=== PATIENT | male | born 1990 | race Caucasian/White ===

== ENCOUNTER 2022-12-19 10:46 | Outpatient (AMB) | payer OTHER, SELFPAY ==
--- NOTE | 2022-12-19 13:17 | MHC.OFFWIV ---
Intake Vital Signs 12/19/22 13:19 Height 5 ft 9 in Weight 156 lb BMI 23.0 BP 140/80 H Blood Pressure Location Rt brachial Position Sitting Pulse 74 Pulse Source Pulse Oximeter Temp 99.5 F Temp Source Temporal Artery Scan Pulse Oximetry (%) 98 Oxygen Delivery Method Room Air Intake Visit Reasons: Est/headaches/light fever Intake Note: Patient here for headaches, slight fever for two days, he has had vomiting due to them. He would also like to talk about lower back pain. Patient Tobacco Use Status: Never used Tobacco Allergies No Known Allergies Allergy (Unverified 12/19/22 13:21) Do you need a note to return to daycare/school/sports/work: Yes HPI Est/headaches/light fever HPI Details 32-year-old male patient presents today with a 2 day history of body ache, backache, headache, temp up to 100, mildly sore throat, and some episodes of nausea/vomiting. Denies any known exposure to sick contacts. Denies any respiratory symptoms. [facility] Social History Patient Tobacco Use Status: Never used Tobacco Review of Systems Const All systems reviewed & are unremarkable except as noted in HPI and below Physical Exam Vital Signs: Last Vital Signs Temp 99.5 F 12/19/22 13:19 Pulse 74 12/19/22 13:19 BP 140/80 H 12/19/22 13:19 Pulse Ox 98 12/19/22 13:19 Oxygen Delivery Method Room Air 12/19/22 13:19 BMI result Body Mass Index 23.0 Const General: cooperative, no acute distress and ill appearing (mild) HEENT Head: Yes normal to inspection Ears: hearing grossly normal bilaterally, external ears normal and unable to visualize TM (Cerumen impaction) bilaterally General nose exam: Normal external nose present and Normal nasal mucous membranes and turbinates present Face and sinus: Yes normal facial exam Mouth: Normal oral and palatal mucosa present and moist mucous membranes Throat: Yes abnormal tonsil (Tonsillar hypertrophy and erythema) and Yes posterior oropharynx abnormal (Erythematous) Neck Neck: Yes no lymphadenopathy and Yes no meningeal signs Resp Effort & Inspection: normal respiratory effort and able to speak in complete sentences Auscultation: clear to auscultation bilaterally Cardio Jugular venous distension: no JVD Palpation: normal PMI Rate: regular rate Rhythm: regular rhythm Skin General skin exam: no rashes or lesions noted Neuro General: no meningeal signs Extrem General: Yes capillary refill normal and Yes no clubbing, cyanosis or edema Psych Appearance: grossly normal Mental Status: mental status grossly normal Speech and movement: Normal speech and movement present Results AMB Rapid Strep AMB Rapid Strep Negative Last Edit by KAELYN Samaniego on 12/19/22 13:57 Assessment & Plan Assessment & Plan (1) Upper respiratory virus: Code(s): J06.9 - Acute upper respiratory infection, unspecified Plan: Patient's symptoms consistent with viral illness. We reviewed conservative measures for symptomatic treatment, including Motrin, Tylenol, rest, hydration, otc cold/flu products. He declines any viral testing. He has bilateral cerumen impaction in both ears, which I encouraged he utilize Debrox drops for. If he does not improve with time and conservative measures, or if symptoms worsen, he can return to the clinic for further evaluation/testing as desired. Patient agrees to plan. Work note provided. Orders: Orders AMB Rapid Strep Screen Today Z13.9 - Encounter for screening, unspecified Coding Level of Care Code Est Pt Level 3 (73482) Diagnoses Upper respiratory virus J06.9
[2022-12-19 13:19] VITALS: BP 140/80; PULSE 74; TEMP 37.5; O2SAT 98; BMI 23.0
== END 2022-12-19 14:01 | disposition home or self-care (01) ==
PROVIDERS: PCP Hospitalist; Visit Provider Nurse Practitioner Family
DX: J06.9 Acute upper respiratory infection, unspecified (principal); J02.9 Acute pharyngitis, unspecified
CPT/HCPCS: 87880; 99213

== ENCOUNTER 2023-01-30 11:58 | Observation (INO) | payer OTHER, SELFPAY ==
--- NOTE | ~2023-01-30 | CT_ITS ---
EXAMINATION: CT ABDOMEN AND PELVIS WITH CONTRAST CLINICAL INFORMATION: Abdominal pain. COMPARISON: CT abdomen/pelvis 08/19/2016. TECHNIQUE: Multidetector volumetric images were obtained from the superior aspect of the liver through the pubic symphysis following administration 85 mL of Omnipaque 350 intravenous contrast. Sagittal and coronal reformatted images were obtained on the technologist's workstation. Oral contrast: No This CT examination was performed using dose optimization techniques as appropriate, variously including the following: *Automated exposure control *Adjustment of mA and/or kV according to patient size (this includes techniques or standardized protocols for targeted exams where dose is matched to indication/reason for exam; i.e. extremities or head) *Use of iterative reconstruction technique DLP: 384 mGy-cm FINDINGS: LUNG BASES: The visualized lung bases are unremarkable. LIVER, GALLBLADDER, AND BILIARY TREE: The liver is normal in size, shape, and attenuation. Mild periportal edema. No focal hepatic lesion or biliary ductal dilatation is present. The gallbladder is unremarkable with no evidence of radiopaque gallstones, gallbladder wall thickening, or obvious pericholecystic inflammatory changes. PANCREAS: Nonspecific trace amount of free fluid adjacent to the pancreatic tail extending to the left anterior pararenal space/paracolic gutter. SPLEEN: Unremarkable. ADRENAL GLANDS: Unremarkable. KIDNEYS AND URETERS: Symmetric nephrograms. No suspicious renal lesion. No nephrolithiasis. No hydronephrosis. As above, trace amount of free fluid in the left anterior pararenal space. BLADDER: Unremarkable. GASTROINTESTINAL TRACT: Fluid-filled, dilated appendix measuring up to 1 cm in diameter with a small amount of periappendiceal free fluid (6:20). Scattered fluid-filled distended loops of small bowel with wall thickening within a loop of small bowel in the left abdomen (3:33). Questionable small transient small bowel intussusception in the left abdomen, best visualized on sagittal image 30 series 7. No pneumoperitoneum. No organized extraluminal collection. No evidence of bowel obstruction. ABDOMINAL WALL: No significant hernia is appreciated. LYMPH NODES: Limited evaluation due to paucity of abdominal fat. No discrete abdominopelvic lymphadenopathy. VASCULAR: Normal caliber abdominal aorta. PELVIC VISCERA: Small volume of free fluid. OSSEOUS STRUCTURES: No acute or aggressive appearing osseous findings. CT/CT abdomen pelvis w IV con IMPRESSION: Scattered fluid distended loops of small bowel, some demonstrating wall thickening in the left abdomen, with trace amount of free fluid in the left upper quadrant and pelvis, and mild mesenteric congestion. Constellation of findings are suspicious for acute enteritis. The appendix is abnormally dilated and fluid-filled with a small amount of periappendiceal free fluid, recommend clinical correlation for acute appendicitis. Alternatively, although less favored, these may represent reactive changes in the setting of enteritis.
--- NOTE | ~2023-01-30 | CT_ITS ---
EXAMINATION: CT ABDOMEN AND PELVIS WITH CONTRAST CLINICAL INFORMATION: Intussusception COMPARISON: None available. TECHNIQUE: Multidetector volumetric images were obtained from the superior aspect of the liver through the pubic symphysis following administration 85 mL of Omnipaque 350 intravenous contrast. Sagittal and coronal reformatted images were obtained on the technologist's workstation. Oral contrast: No This CT examination was performed using dose optimization techniques as appropriate, variously including the following: *Automated exposure control *Adjustment of mA and/or kV according to patient size (this includes techniques or standardized protocols for targeted exams where dose is matched to indication/reason for exam; i.e. extremities or head) *Use of iterative reconstruction technique DLP: 292 mGy-cm FINDINGS: BUTTERMAKER CONTINUOUS CHURN: Nonobstructive bowel pattern. LUNG BASES: The visualized lung bases are unremarkable. Nonenlarged heart. No pericardial effusion. LIVER, GALLBLADDER, AND BILIARY TREE: The liver is normal in size, shape, and attenuation. No focal hepatic lesion or biliary ductal dilatation is present. Periportal edema is present. Hypodensity adjacent to falciform ligament likely focal fatty deposition. The gallbladder is dense, likely vicarious excretion. No gallbladder dilatation or evidence of radiopaque gallstones, gallbladder wall thickening, or obvious pericholecystic inflammatory changes. PANCREAS: Unremarkable. SPLEEN: Unremarkable. ADRENAL GLANDS: Unremarkable. KIDNEYS AND URETERS: The kidneys are normal in size, shape, and attenuation. No hydronephrosis, hydroureter, or calculi seen. No perinephric stranding. BLADDER: Unremarkable. GASTROINTESTINAL TRACT: Moderately distended stomach. In focally mildly dilated left upper quadrant proximal small bowel loop, intraluminal filling defect is questioned on axial 3:34, coronal 36/73, sagittal 23/109. Contrast flows freely through this region through small bowel into the colon. There is no proximal small bowel dilatation, regional inflammatory changes, fluid or pathognomonic target sign. Few other incompletely contrast-filled bowel loops are also seen in left upper quadrant. No CT evidence of bowel obstruction. Terminal ileum is unremarkable. On today's study, post oral contrast administration, 2.0 x 1.5 x 1.8 cm medial cecal thickening/soft tissue density is now identified at the base of the appendix, axial 3:58, coronal 21/73. The appendix itself remains fluid-filled measuring 10 mm with enhancing rosenberg. Periappendiceal stranding/fluid again seen on coronal 6:18. Visualized contrast-filled colon is unremarkable, there is underfilling of possibly mildly thickened sigmoid colon. ABDOMINAL WALL: No significant hernia is appreciated. LYMPH NODES: Normal. VASCULAR: Unremarkable. PELVIC VISCERA: Bilaterally symmetric prominent seminal vesicles. Phleboliths. OSSEOUS STRUCTURES: Unremarkable. CT/CT abdomen pelvis w IV con IMPRESSION: Persistent findings suspicious for acute appendicitis. Focused right lower quadrant ultrasound may be useful for further confirmation. Equivocal left upper quadrant small bowel findings with respect to possible intussusception. Unchanged nonspecific periportal edema. Fleischner guidelines were followed.
[2023-01-30 12:24] LABS: MANUAL DIFF FLAG NO
[2023-01-30 12:27] LABS: Basophils Absolute Auto 0.1 X10*3/uL (0.0-0.2); Basophils Percent Auto 0.3 % (0-2); Eosinophils Absolute Auto 0.1 X10*3/uL (0.0-0.4); Eosinophils Percent Auto 0.3 % (0-4); Hematocrit 43.1 % (42.0-52.0); Hemoglobin 14.7 g/dl (14.0-18.0); Imm Gran Abs Auto 0.11 X10*3/uL (0.00-0.03); Imm Gran Pct Auto 0.5 % (0.0-0.4); Lymphocytes Absolute Auto 1.2 X10*3/uL (1.2-4.9); Lymphocytes Percent Auto 5.3 % (20-40); Mean Corpuscular HGB Conc 34.1 g/dl (31.0-36.0); Mean Corpuscular Hemoglobin 30.1 pg (27.0-33.0); Mean Corpuscular Volume 88.3 fL (80.0-98.0); Mean Platelet Volume 9.6 fL (9.4-12.4); Monocytes Absolute Auto 1.3 X10*3/uL (0.1-1.2); Monocytes Percent Auto 5.6 % (2-11); Neutrophils Absolute Auto 19.5 x10*3/uL (2.0-8.3); Platelet Count 240 X10*3/uL (160-400); Red Blood Count 4.88 X10*6/uL (4.60-5.80); Red Cell Distribution Width 12.6 % (11.0-16.0); White Blood Count 22.2 X10*3/uL (4.8-10.8)
[2023-01-30 12:29] VITALS: BP 87/40; PULSE 65; RESP 18; TEMP 36.6; O2SAT 98; BMI 23.0
--- NOTE | 2023-01-30 12:43 | ED_ITS ---
HPI - Abdominal Pain General Chief Complaint: Abdominal Pain Stated Complaint: Stomach Pain Time Seen by Provider: 01/30/23 12:42 Source: patient and family Mode of arrival: ambulatory Limitations: no limitations History of Present Illness HPI narrative: 32 yo male with no past surgery or PMH but does have bouts of abdominal pain and near syncope/syncope this happened 4 years ago and then 1 month ago - 1 month ago this happened abdominal pain nausea and syncope he monitored symptoms at home and it resolved. He comes in woke up this AM felt lower abdominal pain and then had some nausea and due to pain syncopized x 3. He has no CP/SOB, no bloody stools and no dysuria. MD elicited complaint: abdominal pain Pertinent past history: none Onset (ago): day(s) (this AM) Pain Consistency: constant Location: suprapubic Severity: moderate Quality: cramping Radiation: none Migration to: no migration Exacerbating factors: movement Relieving factors: nothing Context: history of similar episodes Associated symptoms: nausea, vomiting and syncope Related Data Home Medications Medication Instructions Recorded Confirmed No Known Home Meds 12/19/22 12/19/22 Allergies Allergy/AdvReac Type Severity Reaction Status Date / Time No Known Allergies Allergy Unverified 12/19/22 13:21 Review of Systems Review of Systems Constitutional : No Weight loss, No Fever, No Chills ENT/Mouth : No sore throat, No Rhinorrhea Eyes: No Swelling, No Redness Cardiovascular : No Chest Pain, No SOB, NoEdema Respiratory : No Cough, No Sputum, No Wheezing Gastrointestinal : Positive Nausea, Positive Vomiting, no Diarrhea, positive abdominal Pain, No Hematochezia, No Melena Genitourinary : No Dysuria, No Urinary Frequency, No Hematuria, No Urgency Musculoskeletal : No joint pain, No Myalgias, No Joint Swelling Skin : No Skin Lesions, No rash Neuro : No Weakness, No Numbness, No Dizziness, No Headache Psych : No Anxiety/Panic, No Depression Heme/Lymph: No Bruising, No Lymphadenopathy All other systems reviewed and are negative. [facility] Past Medical History Attestation statement: The following information was validated with the patient. Medical History No pertinent past medical history Social History Social History Patient Tobacco Use Status: Never used Tobacco Smoked in Last 30 Days: No Use of substances other than those prescribed or required for medical reasons: Yes Substance Use Type: Marijuana Substance Use Frequency: Daily Advance Directives: No Physical Exam ED Vital Signs: Vital Signs - 24 hr 01/30/23 12:29 01/30/23 14:00 01/30/23 15:35 Temperature 97.8 F 98.3 F Pulse Rate 65 71 Respiratory Rate 18 16 Blood Pressure 87/40 L 120/60 111/61 Pulse Oximetry 98 100 Oxygen Delivery Method Room Air Room Air BMI result Body Mass Index 23.0 Appearance: Alert. Oriented X3. No acute distress. Eyes: Pupils equal, round and reactive to light. ENT: Pharynx normal. Neck: Normal inspection. Neck supple. CVS: Normal heart rate and rhythm. Pulses normal. Respiratory: No respiratory distress. Breath sounds normal. Abdomen: Soft and moderate ttp with no rebound Skin: Skin warm and dry. pale skin color. Normal skin turgor. Extremities: No lower extremity edema. No calf ttp Neuro: Oriented X 3. No motor deficit. No sensory deficit. Course Course Course Narrative: This is an RME: Additional HPI, ROS, PE not included below will be deferred to primary provider. 32-year-old male presents with severe abdominal pain throughout, fatigue, has had 3 syncopal episodes over the past few weeks, reporting he just does not feel well he feels very weak. Labs revealing leukocytosis with left shift. Chemistry pending. Patient looks pale, jaundice blood pressure 87/40, will bring him straight to the back for evaluation. Medical Decision Making Medical Decision Making [facility] Narrative: 32 yo male here with syncope and lower abdominal pain with n/v at this time hx of same in past could be appendicitis, viral, constipation, vasovagal - labs, 30cc/kg fluids, IV toradol for pain, EKG, CT scan for appendicitis, empiric antibiotics Differential Diagnosis Differential Diagnoses: The differential diagnosis associated with the presentation includes vasovagal, constipation, UTI, renal colic, appendicitis Admission/Observation Consideration of admission/observation: Escalation of care including admission/observation considered admit to surgery Consult Healthcare Provider Management of the patient was discussed with: Ticket Taker (Dr. Toshia tian) Lab Data [facility] Lab Attestation statement: I reviewed the patient's lab results. 01/30/23 12:20 01/30/23 12:20 Labs: Lab Results 01/30/23 01/30/23 Range/Units 12:20 12:51 WBC 22.2 H (4.8-10.8) X10*3/uL RBC 4.88 (4.60-5.80) X10*6/uL Hgb 14.7 (14.0-18.0) g/dl Hct 43.1 (42.0-52.0) % MCV 88.3 (80.0-98.0) fL MCH 30.1 (27.0-33.0) pg MCHC 34.1 (31.0-36.0) g/dl RDW 12.6 (11.0-16.0) % Plt Count 240 (160-400) X10*3/uL MPV 9.6 (9.4-12.4) fL Immature Gran % (Auto) 0.5 H (0.0-0.4) % Neut % (Auto) 88.0 H (45-73) % Lymph % (Auto) 5.3 L (20-40) % [place] % (Auto) 5.6 (2-11) % Eos % (Auto) 0.3 (0-4) % Baso % (Auto) 0.3 (0-2) % Lymph # (Auto) 1.2 (1.2-4.9) X10*3/uL [place] # (Auto) 1.3 H (0.1-1.2) X10*3/uL Eos # (Auto) 0.1 (0.0-0.4) X10*3/uL Baso # (Auto) 0.1 (0.0-0.2) X10*3/uL Abs Immat Gran (auto) 0.11 H (0.00-0.03) X10*3/uL Absolute Neuts (auto) 19.5 H (2.0-8.3) x10*3/uL Absolute Nucleated RBC 0.000 (0.0-0.012) X10*3/uL Nucleated RBC % (auto) 0.0 (0.0-0.2) /100WBC Sodium 138 (135-145) mmol/L Potassium 3.8 (3.3-5.1) mmol/L Chloride 105 (96-108) mmol/L Carbon Dioxide 27 (22-29) mmol/L Anion Gap 10 L (12-20) BUN 8 L (9-16) mg/dL Creatinine 0.79 (0.5-1.4) mg/dL Estim Creat Clear Calc 140.3 Estimated GFR > 60 Random Glucose 109 (60-115) mg/dL Lactic Acid 1.7 (0.5-2.0) mmol/L Calcium 9.3 (8.4-10.2) mg/dL Magnesium 1.8 (1.6-2.6) mg/dL Total Bilirubin 0.9 (0.0-1.0) mg/dL AST 45 H (5-37) U/L ALT 40 (0-40) U/L Alkaline Phosphatase 57 (39-117) U/L Total Protein 7.5 (6.5-8.0) g/dL Albumin 4.5 (3.5-5.0) g/dL Lipase 15 (8-78) U/L Independent Interpretation I performed an independent interpretation of an: EKG and CT Scan (enteritis, appendicitis) Interpretation: Rate: 75 Rhythm: NSR [place]: normal Normal P waves. Normal MARY ANNE. incomplete RBBB ST T wave : no CADY, normal qTC: normal prior studies: no acute ischemia The study has been interpreted contemporaneously by me. . Radiology Impression Discussion of test interpretation with radiology: I have reviewed the radiologist's reading. Independent Historian Clinical information obtained from an independent historian. History obtained from or confirmed by: Spouse External Record Review External record reviewed: Inpatient record Medications Administered Generic Name Dose Route Start Last Admin Trade Name Freq PRN Reason Stop Dose Admin Metronidazole 500 mg in 100 mls @ 100 mls/hr 01/30/23 16:13 01/30/23 16:21 Flagyl IV 01/30/23 17:12 100 mls/hr ONCE ONE Administration Discontinued Medications Generic Name Dose Route Start Last Admin Trade Name Freq PRN Reason Stop Dose Admin Diphenhydramine HCl 25 mg 01/30/23 13:12 01/30/23 13:27 Diphenhydramine Hcl 50 Mg/Ml Vial IVPUSH 01/30/23 13:13 25 mg ONCE ONE Administration Sodium Chloride 2,177.25 mls @ 2,177.25 mls/hr 01/30/23 12:38 01/30/23 15:25 Ns 30 ml/kg infuse over 1 hr (2177.25 ml) 01/30/23 13:37 Infused IV Infusion .Q1H STA Ceftriaxone Sodium 1 gm/ 50 mls @ 100 mls/hr 01/30/23 12:38 01/30/23 15:25 Sodium Chloride IV 01/30/23 13:07 Infused ONCE ONE Infusion Iohexol 85 ml 01/30/23 14:23 01/30/23 14:24 Iohexol 350 Mg/Ml 100 Ml Infus..Btl IV 01/30/23 14:24 85 ml ONCE ONE Administration Ketorolac Tromethamine 15 mg 01/30/23 12:52 01/30/23 13:05 Ketorolac Tromethamine 15 Mg/Ml Vial IVPUSH 01/30/23 12:53 15 mg ONCE ONE Administration Metoclopramide HCl 10 mg 01/30/23 13:12 01/30/23 13:27 Metoclopramide Hcl 10 Mg/2 Ml Vial IVPUSH 01/30/23 13:13 10 mg ONCE ONE Administration Morphine Sulfate 4 mg 01/30/23 16:15 01/30/23 16:21 Morphine Sulfate 4 Mg/Ml Cartridge IVPUSH 01/30/23 16:16 4 mg ONCE ONE Administration Protocol Ondansetron HCl 4 mg 01/30/23 12:52 01/30/23 13:03 Ondansetron Hcl 4 Mg/2 Ml Vial IVPUSH 01/30/23 12:53 4 mg ONCE ONE Administration Critical Care Time Critical Care Time Critical Care Time: Yes Total Critical Care Time: 45 Attestation: IV morphine for pain - improved pain, CT scan, consult to surgery, 30cc / kg bolus I attest to this time spent taking care of the patient Discharge Plan Discharge Clinical Impression: Abdominal pain Qualifiers: Abdominal location: lower abdomen, unspecified Qualified Code(s): R10.30 - Lower abdominal pain, unspecified Acute appendicitis Qualifiers: Acute appendicitis type: with localized peritonitis Appendicitis gangrene presence: without gangrene Appendicitis perforation presence: without perforation Appendicitis abscess presence: without abscess Qualified Code(s): K 35.30 - Acute appendicitis with localized peritonitis, without perforation or gangrene Elevated WBC count Qualifiers: Leukocytosis type: unspecified Qualified Code(s): D72.829 - Elevated white blood cell count, unspecified Patient Disposition: Admitted As Inpatient
[2023-01-30 12:46] LABS: Alanine Aminotransferase 40 U/L (0-40); Albumin Level 4.5 g/dL (3.5-5.0); Alkaline Phosphatase 57 U/L (39-117); Anion Gap 10 (12-20); Aspartate Amino Transferase 45 U/L (5-37); Bilirubin Total 0.9 mg/dL (0.0-1.0); Blood Urea Nitrogen 8 mg/dL (9-16); Calcium 9.3 mg/dL (8.4-10.2); Carbon Dioxide 27 mmol/L (22-29); Chloride 105 mmol/L (96-108); Creatinine Clr Calc Pharmacy 140.3; Estimated Glomerular Filt Rate > 60; Glucose Random 109 mg/dL (60-115); Lipase 15 U/L (8-78); Magnesium 1.8 mg/dL (1.6-2.6); Potassium 3.8 mmol/L (3.3-5.1); Sodium 138 mmol/L (135-145); Total Protein 7.5 g/dL (6.5-8.0)
[2023-01-30] MEDS: 0.9 % Sodium Chloride 2,177.25 ML 2177.25 ML IV (13:01)
[2023-01-30] MEDS: ondansetron HCL 4 MG/2 ML VIAL IVPUSH (13:03)
[2023-01-30] MEDS: Ketorolac Tromethamine 15 MG/ML VIAL IVPUSH (13:05)
[2023-01-30] MEDS: cefTRIAXone sodium 1 GM in 0.9 % Sodium Chloride 50 ML IV (13:08)
[2023-01-30 13:10] LABS: Lactic Acid 1.7 mmol/L (0.5-2.0)
[2023-01-30] MEDS: diphenhydrAMINE HCL 50 MG/ML VIAL 25 MG IVPUSH (13:27)
[2023-01-30] MEDS: Metoclopramide HCl 10 MG/2 ML VIAL IVPUSH (13:27)
[2023-01-30 14:00] VITALS: BP 120/60
[2023-01-30] MEDS: iohexoL 350 MG/ML 100 ML INFUS..BTL 85 ML IV (14:24)
[2023-01-30 15:35] VITALS: BP 111/61; PULSE 71; RESP 16; TEMP 36.8; O2SAT 100
--- NOTE | 2023-01-30 15:40 | PC.NURSE ---
Patient calm and cooperative on stretcher. Pain well controlled on medication administered per MAR. Vitals updated, no s/s of distress noted.
--- NOTE | 2023-01-30 16:14 | ECG_ITS ---
Test Reason : SYNCOPE Blood Pressure : / mmHG Vent. Rate : 075 BPM Atrial Rate : 075 BPM P-R Int : 144 ms QRS Dur : 096 ms QT Int : 382 ms P-R-T Axes : 080 092 052 degrees QTc Int : 426 ms Normal sinus rhythm Rightward axis Incomplete right bundle branch block Borderline ECG No previous ECGs available Referred By: Susi Pritchard Electronically Signed By:VON CAVAZOS MD
[2023-01-30] MEDS: metroNIDAZOLE/NS 500 MG/100 ML PIGGYBACK 100 MG IV (16:21)
[2023-01-30] MEDS: Morphine Sulfate 4 MG/ML CARTRIDGE IVPUSH (16:21)
--- NOTE | 2023-01-30 16:32 | PHA.MEDREC ---
Pharmacy Consult ? Medication Reconciliation Pharmacy has completed the medication reconciliation. Patient reports no medications at home. Khloe Gray, BillD
--- NOTE | 2023-01-30 17:02 | P.HPGS_ITS ---
History of Present Illness History of Present Illness Date of Service: 01/30/23 Chief complaint: Stomach Pain Narrative: Richard Ramirez is a 32 year old male presenting with complaints of mid abdominal pain located in a bandlike fashion across his abdomen at the umbilical level. The pain began this morning and has increased in severity throughout the day. He subsequently left work and presented to the emergency department for further evaluation. He reports a previous episode approximately 4 years ago as well as 1 month ago all with the similar presentation. He denies fever, chills but does feel nauseous. He also developed lightheadedness and apparently passed out with his previous episode 1 month ago. He denies changes in his bowel habits and denies any bloody stool. The previous episode 1 month ago lasted approximately 2 and half days but then subsequently resolved spontaneously. He never sought medical attention for the previous episodes. Upon presentation to the emergency department he was noted to have an elevated WBC 20,000. CT abdomen and pelvis revealed a fluid-filled appendix with some surrounding peritoneal fluid. There is also the question of a small bowel intussusception in the left mid abdomen. He is admitted to the surgical service for further management of the possible appendicitis or intussusception. Review of Systems Review of Systems: Yes all other systems are reviewed and are negative Gastrointestinal: Gastrointestinal: Reports abdominal pain, Denies diarrhea, Denies loose stools, Reports nausea and Denies vomiting PMFSH Past Medical History Medical History No pertinent past medical history Social History Social History Patient Tobacco Use Status: Never used Tobacco Smoked in Last 30 Days: No Use of substances other than those prescribed or required for medical reasons: Yes Substance Use Type: Marijuana Substance Use Frequency: Daily Advance Directives: No Meds Allergies Allergy/AdvReac Type Severity Reaction Status Date / Time No Known Allergies Allergy Unverified 12/19/22 13:21 Active Medications: Current Medications Metronidazole (Flagyl) 500 mg in 100 mls @ 100 mls/hr IV ONCE ONE Stop: 01/30/23 17:12 Last Admin: 01/30/23 16:21 Dose: 100 mls/hr Home Medications Medication Instructions Recorded Confirmed Last Taken Type No Known Home Meds 12/19/22 01/30/23 Unknown History Physical Exam Vital Signs: Vital Signs: Last Vital Signs Temp 98.3 F 01/30/23 15:35 Pulse 71 01/30/23 15:35 Resp 16 01/30/23 15:35 BP 111/61 01/30/23 15:35 Pulse Ox 100 01/30/23 15:35 O2 Del Method Room Air 01/30/23 15:35 BMI result Body Mass Index 23.0 Const: General: no acute distress and well developed Nutritional Appearance: well nourished Orientation/consciousness: patient oriented x3 Limitations: no limitations HEENT: Head: Yes normocephalic and Yes atraumatic Ears: hearing grossly normal bilaterally Resp: Effort & Inspection: normal respiratory effort, no audible wheezes, no cough and no respiratory distress GI: Other: Very mild tenderness in the periumbilical region. No tenderness in the right lower quadrant, negative Rovsing sign. Inspection: Yes normal to inspection Palpation (GI): Soft to palpation, Tenderness to palpation present (GI), no guarding, not rigid, No hepatosplenomegaly present, no hernias and no masses Percussion: Yes normal to percussion Auscultation: normal bowel sounds Skin: Other: Warm, dry, no rash Neuro: General: patient oriented x3 Extrem: General: Yes no clubbing, cyanosis or edema Results Results Labs: Short CBC 01/30/23 Range/Units 12:20 WBC 22.2 H (4.8-10.8) X10*3/uL Hgb 14.7 (14.0-18.0) g/dl Hct 43.1 (42.0-52.0) % Plt Count 240 (160-400) X10*3/uL BMP 01/30/23 12:20 Sodium 138 Potassium 3.8 Chloride 105 Carbon Dioxide 27 BUN 8 L Creatinine 0.79 Calcium 9.3 Liver Function 01/30/23 Range/Units 12:20 Total Bilirubin 0.9 (0.0-1.0) mg/dL AST 45 H (5-37) U/L ALT 40 (0-40) U/L Alkaline Phosphatase 57 (39-117) U/L Albumin 4.5 (3.5-5.0) g/dL Assessment and Plan (1) Acute appendicitis: Qualifiers: Acute appendicitis type: with localized peritonitis Appendicitis abscess presence: without abscess Appendicitis gangrene presence: without gangrene Appendicitis perforation presence: without perforation Qualified Code(s): K35.30 - Acute appendicitis with localized peritonitis, without perforation or gangrene Status: Acute (2) Small bowel intussusception: Status: Acute (3) Elevated WBC count: Qualifiers: Leukocytosis type: unspecified Qualified Code(s): D72.829 - Elevated wh ite blood cell count, unspecified Status: Acute Plan 32-year-old male patient presenting with acute onset of abdominal pain which has recurred several times in the past, most recently 1 month ago. Workup today does reveal an elevated WBC and CT is significant for a fluid-filled appendix and possible intussusception. The patient's symptoms are suggestive of intussusception occurring mainly in a bandlike fashion in the mid abdomen. On examination he has no tenderness in the right lower quadrant indicate acute appe ndicitis his abdomen is otherwise soft and nondistended. There is no evidence of obstruction clinically. I recommended admission for IV antibiotics. He will be kept on clear liquids tonight and be made NPO after midnight tonight. If his pain is persisting, a CT abdomen and pelvis with oral contrast will be requested to better evaluate the intussusception, if still present. I discussed the plan in detail with the patient and his mother. He expressed understanding and agrees with the plan. Quality Stroke Does the patient have a stroke diagnosis?: No VTE Prior VTE?: No VTE Risk Level:: Surgical - low VTE Device Contraindication: N/A - Device Ordered VTE Drug Contraindication: Treatment Not Indicated Procedures Date of Service Date of Service: 01/30/23
[2023-01-30 17:50] LABS: Appearance Urine Clear; Color Urine Yellow; Glucose Urine UA Negative (Negative); Leukocyte Esterase Urine Negative (Negative); Nitrite Urine Negative (Negative); PH 8.5 (5.0-9.0); Specific Gravity - Urine 1.025 (1.005-1.025); Urine Blood Negative (Negative); Urine Ketones 15 mg/dL (Negative); Urine Protein Negative (Neg-Trace)
[2023-01-30] MEDS: Dextrose 5 % and Lactated Ring 1,000 ML 125 ML IVCONT (18:29)
[2023-01-30] MEDS: Piperacillin Sodium/Tazobactam 3.375 GM in 0.9 % Sodium Chloride 50 ML IV (18:29)
[2023-01-30] MEDS: Acetaminophen 1,000 MG/100 ML PIGGYBACK 400 MG IV ×2 (18:33→23:56)
[2023-01-30 20:14] VITALS: BP 125/66; PULSE 94; RESP 15; O2SAT 98
--- NOTE | 2023-01-30 21:55 | PC.NURSE ---
report given to imc rn.
[2023-01-30 22:20] VITALS: BMI 23.5
[2023-01-30 22:46] VITALS: BP 113/60; PULSE 70; RESP 24; TEMP 36.7; O2SAT 99
[2023-01-30 23:47] VITALS: BP 112/61; PULSE 97; RESP 18; TEMP 37.1; O2SAT 98
[2023-01-31] MEDS: Piperacillin Sodium/Tazobactam 3.375 GM in 0.9 % Sodium Chloride 50 ML IV ×5 (00:35→23:44)
[2023-01-31] MEDS: Dextrose 5 % and Lactated Ring 1,000 ML 125 ML IVCONT ×3 (01:14→19:47)
[2023-01-31 03:33] VITALS: BP 108/61; PULSE 78; RESP 18; TEMP 37.1; O2SAT 98
[2023-01-31] MEDS: Acetaminophen 1,000 MG/100 ML PIGGYBACK 400 MG IV (05:33)
[2023-01-31 07:10] LABS: MANUAL DIFF FLAG NO
[2023-01-31 07:19] LABS: Basophils Percent Auto 0.2 % (0-2); Eosinophils Absolute Auto 0.1 X10*3/uL (0.0-0.4); Eosinophils Percent Auto 0.7 % (0-4); Hematocrit 38.2 % (42.0-52.0); Hemoglobin 12.8 g/dl (14.0-18.0); Imm Gran Abs Auto 0.04 X10*3/uL (0.00-0.03); Imm Gran Pct Auto 0.3 % (0.0-0.4); Lymphocytes Absolute Auto 1.2 X10*3/uL (1.2-4.9); Lymphocytes Percent Auto 9.4 % (20-40); Mean Corpuscular HGB Conc 33.5 g/dl (31.0-36.0); Mean Corpuscular Hemoglobin 29.9 pg (27.0-33.0); Mean Corpuscular Volume 89.3 fL (80.0-98.0); Mean Platelet Volume 10.3 fL (9.4-12.4); Monocytes Absolute Auto 0.8 X10*3/uL (0.1-1.2); Monocytes Percent Auto 6.1 % (2-11); Neutrophils Absolute Auto 10.9 x10*3/uL (2.0-8.3); Neutrophils Percent Auto 83.3 % (45-73); Platelet Count 196 X10*3/uL (160-400); Red Blood Count 4.28 X10*6/uL (4.60-5.80); Red Cell Distribution Width 12.9 % (11.0-16.0)
[2023-01-31 07:38] VITALS: BP 121/68; PULSE 74; RESP 18; TEMP 36.8; O2SAT 99
--- NOTE | 2023-01-31 08:50 | PM.PNGS ---
Subjective Subjective Date of Service: 01/31/23 Interval history: Pain is much improved today. Denies nausea, vomiting, diarrhea or constipation. Physical Exam Vital Signs: Vital Signs: Last Vital Signs Temp 98.3 F 01/31/23 07:38 Pulse 74 01/31/23 07:38 Resp 18 01/31/23 07:38 BP 121/68 01/31/23 07:38 Pulse Ox 99 01/31/23 07:38 O2 Del Method Room Air 01/31/23 07:38 BMI result Body Mass Index 23.5 Const: General: comfortable Nutritional Appearance: well nourished Orientation/consciousness: patient oriented x3 Limitations: no limitations Resp: Effort & Inspection: normal respiratory effort GI: Palpation (GI): Soft to palpation, nontender, no guarding, not rigid and no masses Percussion: Yes normal to percussion Auscultation: normal bowel sounds Rectal Exam - Male: Yes deferred Neuro: General: patient oriented x3 Extrem: General: Yes normal to inspection Objective Data Active Medications Hydromorphone HCl (Hydromorphone Hcl 0.5 Mg/0.5 Ml Syringe) 0.5 mg IVPUSH Q3H PRN; Protocol PRN Reason: Pain, Severe (Pain Scale 7-10) Acetaminophen (Ofirmev) 1,000 mg in 100 mls @ 400 mls/hr IV Q6H [facility] Last Infusion: 01/31/23 06:16 Dose: Infused Documented By: LYLE Dextrose/Lactated Ringer's (D5lr) 1,000 mls @ 125 mls/hr IVCONT .Q8H [facility] Last Admin: 01/31/23 01:14 Dose: 125 mls/hr Documented By: LYLE Piperacillin Sod/Tazobactam (Sod 3.375 gm/ Sodium Chloride) 50 mls @ 100 mls/hr IV Q6H [facility] Last Infusion: 01/31/23 07:07 Dose: Infused Documented By: MALAIKA Ondansetron HCl (Ondansetron Hcl 4 Mg/2 Ml Vial) 4 mg IVPUSH QID PRN PRN Reason: Nausea Sodium Chloride (0.9 % Sodium Chloride Flush 3 Ml Syringe) 3 ml IVFLUSH QSHIFT [facility] Last Admin: 01/31/23 00:10 Dose: Not Given Documented By: LYLE Non-Admin Reason: IV Running Zolpidem Tartrate (Zolpidem Tartrate 5 Mg Tablet) 5 mg PO BEDTIME PRN PRN Reason: Insomnia Labs 01/31/23 06:48 01/30/23 12:20 Labs: Laboratory Results - last 24 hr 01/30/23 01/30/23 01/30/23 12:20 12:51 17:40 MCV 88.3 MCH 30.1 MCHC 34.1 RDW 12.6 Plt Count 240 MPV 9.6 Immature Gran % (Auto) 0.5 H Neut % (Auto) 88.0 H Lymph % (Auto) 5.3 L [place] % (Auto) 5.6 Eos % (Auto) 0.3 Baso % (Auto) 0.3 Lymph # (Auto) 1.2 [place] # (Auto) 1.3 H Eos # (Auto) 0.1 Baso # (Auto) 0.1 Abs Immat Gran (auto) 0.11 H Absolute Neuts (auto) 19.5 H Absolute Nucleated RBC 0.000 Nucleated RBC % (auto) 0.0 Anion Gap 10 L Estim Creat Clear Calc 140.3 Estimated GFR > 60 Random Glucose 109 Lactic Acid 1.7 Calcium 9.3 Magnesium 1.8 Total Bilirubin 0.9 AST 45 H ALT 40 Alkaline Phosphatase 57 Total Protein 7.5 Albumin 4.5 Lipase 15 Urine Color Yellow Urine Appearance Clear Urine pH 8.5 Ur Specific [place] 1.025 Urine Protein Negative Urine Glucose (UA) Negative Urine Ketones 15 Urine Blood Negative Urine Nitrite Negative Ur Leukocyte Esterase Negative 01/31/23 06:48 MCV 89.3 MCH 29.9 MCHC 33.5 RDW 12.9 Plt Count 196 MPV 10.3 Immature Gran % (Auto) 0.3 Neut % (Auto) 83.3 H Lymph % (Auto) 9.4 L [place] % (Auto) 6.1 Eos % (Auto) 0.7 Baso % (Auto) 0.2 Lymph # (Auto) 1.2 [place] # (Auto) 0.8 Eos # (Auto) 0.1 Baso # (Auto) 0.0 Abs Immat Gran (auto) 0.04 H Absolute Neuts (auto) 10.9 H Absolute Nucleated RBC 0.000 Nucleated RBC % (auto) 0.0 Anion Gap Estim Creat Clear Calc Estimated GFR Random Glucose Lactic Acid Calcium Magnesium Total Bilirubin AST ALT Alkaline Phosphatase Total Protein Albumin Lipase Urine Color Urine Appearance Urine pH Ur Specific [place] Urine Protein Urine Glucose (UA) Urine Ketones Urine Blood Urine Nitrite Ur Leukocyte Esterase Procedures Date of Service Date of Service: 01/31/23 Progress Note: A&P Assessment and plan (1) Small bowel intussusception: Status: Acute (2) Acute appendicitis: Status: Acute Plan 32-year-old male patient with fluid-filled appendix and evidence of intussusception. Patient's symptoms are suggestive of intussusception which is improved today. No right lower quadrant tenderness elicited. WBC is improving as well. Plan: Contrasted CT with oral contrast to better evaluate intussusception. If normal CT, will start p.o.. Time Spent With Patient Time: Total time managing care of this patient today ____ minutes. No Severe Sepsis: No Severe Sepsis Quality Stroke Does the patient have a stroke diagnosis?: No VTE Prior VTE?: No VTE Risk Level:: Surgical - low VTE Device Contraindication: N/A - Device Ordered VTE Drug Contraindication: Treatment Not Indicated
--- NOTE | 2023-01-31 08:53 | MHC.CM.PN ---
CM met with Patient at bedside and addressed HINKLE with him, providing Patient with the original and placing a copy on the chart. Patient lives in a house with his and 2 year old Daughter and he is functionally independent and working. Home/self care is the goal and CM has initiated and will follow for dc planning. PCP is from [facility].
[2023-01-31 11:17] VITALS: BP 121/69; PULSE 63; RESP 18; TEMP 36.9; O2SAT 99
[2023-01-31] MEDS: iohexoL 350 MG/ML 75 ML INFUS..BTL 85 ML IV (14:17)
[2023-01-31 15:19] VITALS: BP 120/72; PULSE 63; RESP 16; TEMP 37.1; O2SAT 100
[2023-01-31 19:23] VITALS: BP 139/71; PULSE 58; RESP 16; TEMP 36.9; O2SAT 99
[2023-01-31] MEDS: Melatonin 3 MG TABLET 6 MG PO (20:20)
[2023-01-31 23:58] VITALS: BP 110/60; PULSE 69; RESP 18; TEMP 36.7; O2SAT 98
[2023-02-01 04:00] VITALS: BP 129/73; PULSE 58; RESP 20; TEMP 37.1; O2SAT 98
[2023-02-01] MEDS: Dextrose 5 % and Lactated Ring 1,000 ML 125 ML IVCONT (04:29)
[2023-02-01] MEDS: Piperacillin Sodium/Tazobactam 3.375 GM in 0.9 % Sodium Chloride 50 ML IV (05:21)
[2023-02-01 07:37] VITALS: BP 118/68; PULSE 69; RESP 18; TEMP 37.1; O2SAT 98
[2023-02-01] MEDS: 0.9 % Sodium Chloride Flush 3 ML SYRINGE IVFLUSH (08:53)
[2023-02-01 11:58] VITALS: BP 122/81; PULSE 71; RESP 18; TEMP 37; O2SAT 99
--- NOTE | 2023-02-01 12:40 | PM.PNGS ---
Subjective Subjective Date of Service: 02/01/23 Interval history: Patient has complete resolution of GI symptoms. His was also present. He has had a prior episode of this pain approximately 3 weeks ago. His follow-up CT scan from yesterday demonstrated no evidence of intussusception. Appendix was mildly edematous. Patient is tolerating his liquid diet. He wishes to go home. Physical Exam Vital Signs: Vital Signs: Last Vital Signs Temp 98.6 F 02/01/23 11:58 Pulse 71 02/01/23 11:58 Resp 18 02/01/23 11:58 BP 122/81 02/01/23 11:58 Pulse Ox 99 02/01/23 11:58 O2 Del Method Room Air 02/01/23 11:58 BMI result Body Mass Index 23.5 GI: Other: Abdomen soft, benign, nontender. Objective Data Active Medications Hydromorphone HCl (Hydromorphone Hcl 0.5 Mg/0.5 Ml Syringe) 0.5 mg IVPUSH Q3H PRN; Protocol PRN Reason: Pain, Severe (Pain Scale 7-10) Dextrose/Lactated Ringer's (D5lr) 1,000 mls @ 125 mls/hr IVCONT .Q8H [facility] Last Admin: 02/01/23 04:29 Dose: 125 mls/hr Documented By: DENIA Piperacillin Sod/Tazobactam (Sod 3.375 gm/ Sodium Chloride) 50 mls @ 100 mls/hr IV Q6H [facility] Last Infusion: 02/01/23 08:51 Dose: Infused Documented By: MELISSA Ondansetron HCl (Ondansetron Hcl 4 Mg/2 Ml Vial) 4 mg IVPUSH QID PRN PRN Reason: Nausea Sodium Chloride (0.9 % Sodium Chloride Flush 3 Ml Syringe) 3 ml IVFLUSH QSHIFT [facility] Last Admin: 02/01/23 08:53 Dose: 3 ml Documented By: MELISSA Zolpidem Tartrate (Zolpidem Tartrate 5 Mg Tablet) 5 mg PO BEDTIME PRN PRN Reason: Insomnia Labs 01/31/23 06:48 01/30/23 12:20 Microbiology Microbiology Results: Microbiology 01/30/23 12:59 Blood Culture - Preliminary Blood - Venous No growth after 24 hours. 01/30/23 12:51 Blood Culture - Preliminary Blood - Venous No growth after 24 hours. Procedures Date of Service Date of Service: 02/01/23 Progress Note: A&P Assessment and plan (1) Abdominal pain: Status: Acute Plan Current plan is discharge patient home with follow-up with Dr. Pope in 1 weeks time. Discharge instructions given. Time Spent With Patient Time: Total time managing care of this patient today ____ minutes. Quality Stroke Does the patient have a stroke diagnosis?: No VTE Prior VTE?: No VTE Risk Level:: Surgical - low VTE Device Contraindication: N/A - Device Ordered VTE Drug Contraindication: Treatment Not Indicated
--- NOTE | 2023-02-01 14:56 | MHC.CM.PN ---
ARIN 01/31 Patient discharged to home today self care. Patient will arrage for a family member to provide transportation home.
--- NOTE | 2023-02-04 08:24 | P.DS_ITS ---
DS: Providers Provider Date of Service: 02/01/23 Date of admission: 01/30/23 17:01 Date of discharge: 02/01/23 Primary care physician: Nereida Physician Attending physician on admission: Bryce Pope Attending physician on discharge: Janak Rivera DS: Diagnosis Discharge Diagnosis (1) Abdominal pain: Status: Acute DS: Summary Hospital Course Hospital Course: HPI AT ADMISSION: Richard Ramirez is a 32 year old male presenting with complaints of mid abdominal pain located in a bandlike fashion across his abdomen at the umbilical level. The pain began this morning and has increased in severity throughout the day. He subsequently left work and presented to the emergency department for further evaluation. He reports a previous episode approximately 4 years ago as well as 1 month ago all with the similar presentation. He denies fever, chills but does feel nauseous. He also developed lightheadedness and apparently passed out with his previous episode 1 month ago. He denies changes in his bowel habits and denies any bloody stool. The previous episode 1 month ago lasted approximately 2 and half days but then subsequently resolved spontaneously. He never sought medical attention for the previous episodes. Upon presentation to the emergency department he was noted to have an elevated WBC 20,000. CT abdomen and pelvis revealed a fluid-filled appendix with some surrounding peritoneal fluid. There is also the question of a small bowel intussusception in the left mid abdomen. HOSPITAL COURSE: He is admitted to the surgical service for further management of the possible appendicitis or intussusception. His abdomen is benign with no evidence of obstruction clinically. He was started on empiric IV antibiotics. His symptoms improved and resolved. A CT abdomen and pelvis with oral contrast was requested to better evaluate which showed no findings of intussusception but an edematous appendix. His WBC count was significant improved and his abdomen was benign and completely nontender. His diet was slowly advanced as tolerated. On the day of discharge, he had no abdominal pain or obstructive symptoms. He was tolerating a solid diet and had a benign abdominal exam. He felt ready for discharge. He was discharged to home on 02/01/23 in stable condition. He is to follow up in the office in 1 week. Status at Discharge Functional status at discharge: independent ambulation Overall status at discharge: patient is back to baseline Time Attestation Discharge coordination time: Less than 30 minutes Quality: Safe Use of Opioids Does Pt have an Active Cancer Diagnosis on the Problem List?: No Quality: Stroke Does the patient have a stroke diagnosis?: No Physical Exam Vital Signs: Vital Signs: Last Vital Signs Temp 98.6 F 02/01/23 11:58 Pulse 71 02/01/23 11:58 Resp 18 02/01/23 11:58 BP 122/81 02/01/23 11:58 Pulse Ox 99 02/01/23 11:58 O2 Del Method Room Air 02/01/23 11:58 BMI result Body Mass Index 23.5 Const: General: comfortable, no acute distress and alert Orientatio n/consciousness: patient oriented x3 GI: Inspection: No distended Palpation (GI): Soft to palpation and non tender Neuro: General: patient oriented x3 DS: Data Data Completed and Pending Labs on day of discharge: Preliminary micro results at discharge 01/30/23 12:51 Blood Culture - Preliminary Blood - Venous Prelim: GNR Gram Stain only 01/30/23 12:59 Blood Culture - Preliminary Blood - Venous No growth after 48 hours. Discharge Plan Discharge Patient Disposition: Home, Self-Care Referrals: Bryec Pope MD [Physician] - 1 Week PhysicianNereida [Primary Care Provider] - 1 Week Discharge Medications: No Action No Known Home Meds Discharge Orders: Discharge Order (Routine); Ordered 02/01/23 Ordered By: Janak Rivera Diet: Advance to usual diet Activity on Discharge: As tolerated Stand Alone Forms: Patient Portal Discharge page Care Plan Goals: Return to baseline Health Concerns: None Plan of Treatment: Conservative therapy Assessment: Stable Discharge Date/Time: 02/01/23 14:00
== END 2023-02-01 14:00 | disposition home or self-care (01) ==
LOC: HO.ED 16:17 → HO.EDOVER 17:25 → HO.IMC 21:34
PROVIDERS: Physician Assistant; Admitting Provider Surgery; Emergency Provider Emergency Medicine; Visit Provider Surgery
DX: R10.33 Periumbilical pain (principal); D72.829 Elevated white blood cell count, unspecified; K38.9 Disease of appendix, unspecified; R10.84 Generalized abdominal pain; R93.3 Abnormal findings on diagnostic imaging of other parts of digestive tract; R55 Syncope and collapse
CPT/HCPCS: 36415; 74177; 80053; 81003; 83605; 83690; 83735; 85025; 87040; 87185; 87205; 93005; 96361; 96365; 96366; 96367; 96375; 99222; 99285; J0131; J0696; J1200; J1836; J1885; J2270; J2405; J2543; J2765; Q9967

== ENCOUNTER → 2023-01-30 12:55 | Outpatient (BNV) | payer OTHER, SELFPAY | PROVIDERS: Emergency Provider Emergency Medicine; Visit Provider Surgery | DX: K35.30 Acute appendicitis with localized peritonitis, without perforation or gangrene (principal); K56.1 Intussusception; D72.829 Elevated white blood cell count, unspecified | CPT/HCPCS: 99024; 99222; 99232; 99238 ==

== ENCOUNTER 2024-09-01 04:38 | Inpatient (IN) | payer OTHER, SELFPAY ==
--- NOTE | ~2024-09-01 | CT_ITS ---
EXAMINATION: CTA NECK WITH CONTRAST (STROKE) CTA BRAIN WITH CONTRAST (STROKE) CLINICAL INFORMATION: Severe headache. COMPARISON: None available. TECHNIQUE: CTA of the head and neck was performed in the axial plane from the mediastinum to the skull vertex using 70 mL Omnipaque 350 intravenous contrast. Additional reformatted multiplanar images including maximum intensity projection MIP images are generated on the CT workstation. This CT examination was performed using dose optimization techniques as appropriate, variously including the following: *Automated exposure control *Adjustment of mA and/or kV according to patient size (this includes techniques or standardized protocols for targeted exams where dose is matched to indication/reason for exam; i.e. extremities or head) *Use of iterative reconstruction technique DLP: 1586 mGy centimeter. FINDINGS: The degree of stenosis determined by criteria similar to NASCET. Brain: No acute intracranial hemorrhage, mass effect, midline shift, hydrocephalus or herniation. Gaffney-white matter differentiation is normal. Posterior cranial fossa contents demonstrated no acute hemorrhage or mass effect. Sellar/suprasellar region demonstrated no gross masses. Craniocervical junction demonstrates normal position of the cerebellar tonsils. No air-fluid levels in the paranasal sinuses. Tympanic cavities and mastoid air cells are aerated. Chest CTA: No aneurysm or dissection or IV contrast extravasation, thoracic aortic arch. Neck CTA: Right CCA is normal. Right ICA is normal. Left ACAs normal. Left ICA/normal. V1/V2 segments are normal. Codominant vertebral arteries. Brain CTA: Anterior cerebral circulation: ICAs: Normal patency. No focal stenosis. No abrupt cut off. MCA's: Normal patency. No focal stenosis. No abrupt cut off. ACAs: Normal patency. No focal stenosis. No abrupt cut off. Anterior communicant artery is patent. Left posterior communicating artery is small and patent. Ophthalmic arteries are patent. There is a questionable 1 mm prominent origin of the right ophthalmic artery. Posterior cerebral circulation: V3/V4 segments: Normal patency. No focal stenosis. No intimal flap. There is a common trunk for the right anterior inferior and posterior inferior cerebral arteries. Left posterior inferior cerebral artery is normal. Basilar artery is normal. Superior cerebellar arteries are normal. 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 Normal patency. No abrupt cut off. Ancillary findings: No acute fracture or listhesis in the axial skeleton. Tympanic cavities and mastoid cells are aerated. No gross cervical lymphadenopathy. There is a 1.5 cm low density dominant nodule, right thyroid lobe. CT/CT angio head neck IMPRESSION: No acute intracranial hemorrhage or acute brain abnormality by CT. No dissection. No high degree stenosis. No main cerebral artery occlusion or embolus. 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 Electronically signed by: Teddy Landaverde MD 09/01/2024 10:11 AM EDT
--- NOTE | 2024-09-01 07:30 | ED.HA ---
HPI - Headache General Chief Complaint: Headache Stated Complaint: HEADACHES Time Seen by Provider: 09/01/24 07:22 Source: patient Mode of arrival: ambulatory Limitations: no limitations History of Present Illness HPI Narrative: This is a 34 years old the patient presented to the emergency department with a chief complaint of headache which started yesterday about 11:00 was a gradual onset headache no sudden. He is also complaining of body aches the headache is localized in both temples. He has no neck pain no neck stiffness he has no fever. He has nausea and vomiting as well. He gets occasionally headache MD elicited complaint: headache Onset (ago): day(s) (1) Onset description: gradually Location: other (Both temporal area) Severity: moderate Quality & Timing: aching Exacerbating factors: none Relieving factors: nothing Context: occurred at rest Associated symptoms: nausea and vomiting Related Data Home Medications ?Medication ?Instructions ?Recorded ?Confirmed No Known Home Meds 12/19/22 01/30/23 Allergies Allergy/AdvReac Type Severity Reaction Status Date / Time No Known Allergies Allergy Unverified 12/19/22 13:21 Review of Systems Review of Systems: Yes all other systems are reviewed and are negative Constitutional: Constitutional: Denies fever(s) Gastrointestinal: Gastrointestinal: Reports nausea and Reports vomiting PMFSH Past Medical History Attestation statement: The following information was validated with the patient. Medical History Small bowel intussusception Elevated WBC count Acute appendicitis Abdominal pain No pertinent past medical history Social History Social History Unable to assess alcohol history related to: Unknown Patient Tobacco Use Status: Never used Tobacco Smoked in Last 30 Days: No Use of substances other than those prescribed or required for medical reasons: Unknown Substance Use Type: Marijuana Advance Directives: No Advance Directives Information Provided: Yes service: No Physical Exam Vital Signs: Vital Signs: Last Vital Signs Temp 97.6 F 09/01/24 08:26 Pulse 88 09/01/24 13:02 Resp 16 09/01/24 13:02 BP 103/43 L 09/01/24 13:02 Pulse Ox 97 09/01/24 13:02 O2 Del Method Room Air 09/01/24 13:02 Patient looks not toxic Const: General: cooperative, comfortable, no acute distress, well developed, alert and awake Nutritional Appearance: average body habitus Orientation/consciousness: patient oriented x3 HEENT: Head: Yes normal to inspection Ears: hearing grossly normal bilaterally General nose exam: Normal external nose present Face and sinus: Yes normal facial exam Throat: Yes posterior oropharynx normal Neck: Neck: Yes normal visual inspection Chest: Chest palpation & inspection: normal inspection of the chest Resp: Effort & Inspection: normal respiratory effort Auscultation: clear to auscultation bilaterally Cardio: Jugular venous distension: no JVD Rate: regular rate Rhythm: regular rhythm GI: Inspection: Yes normal to inspection Palpation (GI): Soft to palpation, not firm and nontender Auscultation: normal bowel sounds Skin: General skin exam: no rashes or lesions noted, elasticity normal and turgor normal Lesions: no lesions Wounds: no wounds Neuro: General: patient oriented x3, gait normal and CN's II-XI intact bilaterally Cranial nerves: Yes CN's II-XII intact bilaterally Course Reevaluation(s) Reevaluation #1: Still complaining of a headache at this time, CT reviewed question 1 mm aneurysm right ophthalmic artery most likely incidental finding size very small. I discussed with the patient risk and benefits of lumbar puncture, patient consent for lumbar puncture Time: 11:09 Reevaluation #2: LP resulted pt has 395 WBC, elevated protein discussed with neurologist we will start him on IV antibiotic I tiger tests also ID we will admit Time: 13:56 Medications Administered Discontinued Medications Generic Name Dose Route Start Last Admin Trade Name Babs PRN Reason Stop Dose Admin Acetaminophen 650 mg 09/01/24 07:21 09/01/24 08:13 Acetaminophen 325 Mg Tablet PO 09/01/24 07:22 650 mg ONCE ONE Administration Diphenhydramine HCl 25 mg 09/01/24 07:27 09/01/24 07:43 Diphenhydramine Hcl 50 Mg/Ml Vial IVPUSH 09/01/24 07:28 25 mg ONCE ONE Administration Hydromorphone HCl 0.5 mg 09/01/24 08:24 09/01/24 08:58 Hydromorphone Hcl 0.5 Mg/0.5 Ml Syringe IVPUSH 09/01/24 08:25 0.5 mg ONCE ONE Administration Protocol Lactated Ringer's 1,000 mls @ 999 mls/hr 09/01/24 07:30 09/01/24 09:01 Lr IV 09/01/24 08:30 Infused .Q1H1M JYOTHI Infusion Sodium Chloride 1,000 mls @ 999 mls/hr 09/01/24 11:00 09/01/24 12:21 Ns IVCONT 09/01/24 12:00 Infused .Q1H1M JYOTHI Infusion Ibuprofen 600 mg 09/01/24 07:21 09/01/24 08:13 Ibuprofen 600 Mg Tablet PO 09/01/24 07:22 600 mg ONCE ONE Administration Iohexol 100 ml 09/01/24 09:53 09/01/24 09:54 Iohexol 350 Mg/Ml 100 Ml Infus..Btl IV 09/01/24 09:54 70 ml ONCE ONE Administration Ketorolac Tromethamine 15 mg 09/01/24 11:33 09/01/24 11:56 Ketorolac Tromethamine 15 Mg/Ml Vial IVPUSH 09/01/24 11:34 15 mg ONCE ONE Administration Metoclopramide HCl 10 mg 09/01/24 07:27 09/01/24 07:43 Metoclopramide Hcl 10 Mg/2 Ml Vial IVPUSH 09/01/24 07:28 10 mg ONCE ONE Administration Midazolam HCl 1 mg 09/01/24 11:33 09/01/24 11:55 Midazolam Hcl 2 Mg/2 Ml Vial IVPUSH 09/01/24 11:34 1 mg ONCE ONE Administration Medical Decision Making Medical Decision Making [facility] Narrative: Patient presented to the emergency room with a headache no worse headache ever we will insert an IV administer IV fluid antiemetic obtain imaging Differential Diagnosis Differential Diagnoses: The differential diagnosis associated with the presentation includes Migraine headache/viral syndrome/unlikely subarachnoid no sudden/unlikely meningitis no neck pain Admission/Observation Consideration of admission/observation: Escalation of care including admission/observation considered Consult Healthcare Provider Management of the patient was discussed with: Hospitalist Lab Data [facility] Lab Attestation statement: I reviewed the patient's lab results. 09/01/24 07:42 09/01/24 07:42 Labs: Lab Results 09/01/24 09/01/24 09/01/24 Range/Units 07:42 11:43 11:43 WBC 12.0 H (4.8-10.8) X10*3/uL RBC 4.86 (4.60-5.80) X10*6/uL Hgb 14.8 (14.0-18.0) g/dl Hct 40.9 L (42.0-52.0) % MCV 84.2 (80.0-98.0) fL MCH 30.5 (27.0-33.0) pg MCHC 36.2 H (31.0-36.0) g/dl RDW 12.3 (11.0-16.0) % Plt Count 190 (160-400) X10*3/uL MPV 9.6 (9.4-12.4) fL Immature Gran % (Auto) 0.2 (0.0-0.4) % Neut % (Auto) 93.0 H (45-73) % Lymph % (Auto) 2.6 L (20-40) % [place] % (Auto) 4.1 (2-11) % Eos % (Auto) 0.0 (0-4) % Baso % (Auto) 0.1 (0-2) % Lymph # (Auto) 0.3 L (1.2-4.9) X10*3/uL [place] # (Auto) 0.5 (0.1-1.2) X10*3/uL Eos # (Auto) 0.0 (0.0-0.4) X10*3/uL Baso # (Auto) 0.0 (0.0-0.2) X10*3/uL Abs Immat Gran (auto) 0.02 (0.00-0.03) X10*3/uL Absolute Neuts (auto) 11.2 H (2.0-8.3) x10*3/uL Absolute Nucleated RBC 0.000 (0.0-0.012) X10*3/uL Nucleated RBC % (auto) 0.0 (0.0-0.2) /100WBC Smear Tech's Comments VERIFIED Sodium 138 (135-145) mmol/L Potassium 3.8 (3.3-5.1) mmol/L Chloride 102 (96-108) mmol/L Carbon Dioxide 25 (22-29) mmol/L Anion Gap 15 (12-20) BUN 14 (9-16) mg/dL Creatinine 0.81 (0.5-1.4) mg/dL Estim Creat Clear Calc TNP Estimated GFR > 60 Random Glucose 136 H (60-115) mg/dL Calcium 9.9 D (8.4-10.2) mg/dL Total Bilirubin 1.1 H (0.0-1.0) mg/dL AST 21 (5-37) U/L ALT 25 (0-40) U/L Alkaline Phosphatase 59 (39-117) U/L Total Protein 8.1 H (6.5-8.0) g/dL Albumin 5.1 H (3.5-5.0) g/dL CSF Tube Number 3 1 CSF Volume ML CSF Appearance CSF Color CSF WBC MM*3 CSF RBC MM*3 CSF Neutrophils % CSF Lymphocytes % CSF Monocytes % % CSF Appearance (b) CSF Glucose mg/dL CSF Total Protein (15-45) mg/dL 09/01/24 09/01/24 09/01/24 Range/Units 11:43 11:43 11:43 WBC (4.8-10.8) X10*3/uL RBC (4.60-5.80) X10*6/uL Hgb (14.0-18.0) g/dl Hct (42.0-52.0) % MCV (80.0-98.0) fL MCH (27.0-33.0) pg MCHC (31.0-36.0) g/dl RDW (11.0-16.0) % Plt Count (160-400) X10*3/uL MPV (9.4-12.4) fL Immature Gran % (Auto) (0.0-0.4) % Neut % (Auto) (45-73) % Lymph % (Auto) (20-40) % [place] % (Auto) (2-11) % Eos % (Auto) (0-4) % Baso % (Auto) (0-2) % Lymph # (Auto) (1.2-4.9) X10*3/uL [place] # (Auto) (0.1-1.2) X10*3/uL Eos # (Auto) (0.0-0.4) X10*3/uL Baso # (Auto) (0.0-0.2) X10*3/uL Abs Immat Gran (auto) (0.00-0.03) X10*3/uL Absolute Neuts (auto) (2.0-8.3) x10*3/uL Absolute Nucleated RBC (0.0-0.012) X10*3/uL Nucleated RBC % (auto) (0.0-0.2) /100WBC Smear Tech's Comments Sodium (135-145) mmol/L Potassium (3.3-5.1) mmol/L Chloride (96-108) mmol/L Carbon Dioxide (22-29) mmol/L Anion Gap (12-20) BUN (9-16) mg/dL Creatinine (0.5-1.4) mg/dL Estim Creat Clear Calc Estimated GFR Random Glucose (60-115) mg/dL Calcium (8.4-10.2) mg/dL Total Bilirubin (0.0-1.0) mg/dL AST (5-37) U/L ALT (0-40) U/L Alkaline Phosphatase (39-117) U/L Total Protein (6.5-8.0) g/dL Albumin (3.5-5.0) g/dL CSF Tube Number 4 CSF Volume 1.0 1.0 ML CSF Appearance HAZY HAZY CSF Color COLORLESS CSF WBC MM*3 CSF RBC MM*3 CSF Neutrophils % CSF Lymphocytes % CSF Monocytes % % CSF Appearance (b) CSF Glucose mg/dL CSF Total Protein (15-45) mg/dL 09/01/24 09/01/24 09/01/24 Range/Units 11:43 11:43 11:43 WBC (4.8-10.8) X10*3/uL RBC (4.60-5.80) X10*6/uL Hgb (14.0-18.0) g/dl Hct (42.0-52.0) % MCV (80.0-98.0) fL MCH (27.0-33.0) pg MCHC (31.0-36.0) g/dl RDW (11.0-16.0) % Plt Count (160-400) X10*3/uL MPV (9.4-12.4) fL Immature Gran % (Auto) (0.0-0.4) % Neut % (Auto) (45-73) % Lymph % (Auto) (20-40) % [place] % (Auto) (2-11) % Eos % (Auto) (0-4) % Baso % (Auto) (0-2) % Lymph # (Auto) (1.2-4.9) X10*3/uL [place] # (Auto) (0.1-1.2) X10*3/uL Eos # (Auto) (0.0-0.4) X10*3/uL Baso # (Auto) (0.0-0.2) X10*3/uL Abs Immat Gran (auto) (0.00-0.03) X10*3/uL Absolute Neuts (auto) (2.0-8.3) x10*3/uL Absolute Nucleated RBC (0.0-0.012) X10*3/uL Nucleated RBC % (auto) (0.0-0.2) /100WBC Smear Tech's Comments Sodium (135-145) mmol/L Potassium (3.3-5.1) mmol/L Chloride (96-108) mmol/L Carbon Dioxide (22-29) mmol/L Anion Gap (12-20) BUN (9-16) mg/dL Creatinine (0.5-1.4) mg/dL Estim Creat Clear Calc Estimated GFR Random Glucose (60-115) mg/dL Calcium (8.4-10.2) mg/dL Total Bilirubin (0.0-1.0) mg/dL AST (5-37) U/L ALT (0-40) U/L Alkaline Phosphatase (39-117) U/L Total Protein (6.5-8.0) g/dL Albumin (3.5-5.0) g/dL CSF Tube Number CSF Volume ML CSF Appearance CSF Color COLORLESS CSF WBC 421 H* 395 H* MM*3 CSF RBC 49 51 MM*3 CSF Neutrophils 85 % CSF Lymphocytes % CSF Monocytes % % CSF Appearance (b) CSF Glucose mg/dL CSF Total Protein (15-45) mg/dL 09/01/24 09/01/24 09/01/24 Range/Units 11:43 11:43 11:43 WBC (4.8-10.8) X10*3/uL RBC (4.60-5.80) X10*6/uL Hgb (14.0-18.0) g/dl Hct (42.0-52.0) % MCV (80.0-98.0) fL MCH (27.0-33.0) pg MCHC (31.0-36.0) g/dl RDW (11.0-16.0) % Plt Count (160-400) X10*3/uL MPV (9.4-12.4) fL Immature Gran % (Auto) (0.0-0.4) % Neut % (Auto) (45-73) % Lymph % (Auto) (20-40) % [place] % (Auto) (2-11) % Eos % (Auto) (0-4) % Baso % (Auto) (0-2) % Lymph # (Auto) (1.2-4.9) X10*3/uL [place] # (Auto) (0.1-1.2) X10*3/uL Eos # (Auto) (0.0-0.4) X10*3/uL Baso # (Auto) (0.0-0.2) X10*3/uL Abs Immat Gran (auto) (0.00-0.03) X10*3/uL Absolute Neuts (auto) (2.0-8.3) x10*3/uL Absolute Nucleated RBC (0.0-0.012) X10*3/uL Nucleated RBC % (auto) (0.0-0.2) /100WBC Smear Tech's Comments Sodium (135-145) mmol/L Potassium (3.3-5.1) mmol/L Chloride (96-108) mmol/L Carbon Dioxide (22-29) mmol/L Anion Gap (12-20) BUN (9-16) mg/dL Creatinine (0.5-1.4) mg/dL Estim Creat Clear Calc Estimated GFR Random Glucose (60-115) mg/dL Calcium (8.4-10.2) mg/dL Total Bilirubin (0.0-1.0) mg/dL AST (5-37) U/L ALT (0-40) U/L Alkaline Phosphatase (39-117) U/L Total Protein (6.5-8.0) g/dL Albumin (3.5-5.0) g/dL CSF Tube Number CSF Volume ML CSF Appearance CSF Color CSF WBC MM*3 CSF RBC MM*3 CSF Neutrophils 76 % CSF Lymphocytes 7 9 % CSF Monocytes % 8 15 % CSF Appearance (b) Clear, Colorless CSF Glucose 85 mg/dL CSF Total Protein 51.2 H (15-45) mg/dL Independent Interpretation I performed an independent interpretation of an: CT Scan Radiology Impression Discussion of test interpretation with radiology: I have reviewed the radiologist's reading. Procedures Lumbar Puncture Time Out Performed: Yes Patient Position: upright Skin Prep: Povidone-Iodine 1% Local Anesthetic: lidocaine 1% Amount of anesthesia used (mL): 2 Spinal Needle Gauge: 22G Interspace Used: L3-L4 Fluid Initially Obtained: clear Complications: none Critical Care Time Critical Care Time Critical Care Time: Yes Total Critical Care Time: 90 Attestation: Severe headache requiring lumbar puncture IV antibiotic Discharge Plan Discharge Clinical Impression: Meningitis Patient Disposition: Admitted As Inpatient Print Language: Czech
[2024-09-01] MEDS: Metoclopramide HCl 10 MG/2 ML VIAL IVPUSH (07:43)
[2024-09-01] MEDS: diphenhydrAMINE HCL 50 MG/ML VIAL 25 MG IVPUSH (07:43)
[2024-09-01] MEDS: Lactated Ringers 1,000 ML 999 ML IV (07:43)
[2024-09-01 07:52] LABS: Basophils Percent Auto 0.1 % (0-2); Hematocrit 40.9 % (42.0-52.0); Hemoglobin 14.8 g/dl (14.0-18.0); Imm Gran Abs Auto 0.02 X10*3/uL (0.00-0.03); Imm Gran Pct Auto 0.2 % (0.0-0.4); Lymphocytes Absolute Auto 0.3 X10*3/uL (1.2-4.9); Lymphocytes Percent Auto 2.6 % (20-40); MANUAL DIFF FLAG SCAN; Mean Corpuscular HGB Conc 36.2 g/dl (31.0-36.0); Mean Corpuscular Hemoglobin 30.5 pg (27.0-33.0); Mean Corpuscular Volume 84.2 fL (80.0-98.0); Mean Platelet Volume 9.6 fL (9.4-12.4); Monocytes Absolute Auto 0.5 X10*3/uL (0.1-1.2); Monocytes Percent Auto 4.1 % (2-11); Neutrophils Absolute Auto 11.2 x10*3/uL (2.0-8.3); Platelet Count 190 X10*3/uL (160-400); Red Blood Count 4.86 X10*6/uL (4.60-5.80); Red Cell Distribution Width 12.3 % (11.0-16.0); SCAN SMEAR FLAG 1
[2024-09-01 08:06] LABS: Alanine Aminotransferase 25 U/L (0-40); Albumin Level 5.1 g/dL (3.5-5.0); Alkaline Phosphatase 59 U/L (39-117); Anion Gap 15 (12-20); Aspartate Amino Transferase 21 U/L (5-37); Bilirubin Total 1.1 mg/dL (0.0-1.0); Blood Urea Nitrogen 14 mg/dL (9-16); Calcium 9.9 mg/dL (8.4-10.2); Carbon Dioxide 25 mmol/L (22-29); Chloride 102 mmol/L (96-108); Estimated Glomerular Filt Rate > 60; Glucose Random 136 mg/dL (60-115); Potassium 3.8 mmol/L (3.3-5.1); Sodium 138 mmol/L (135-145); Total Protein 8.1 g/dL (6.5-8.0)
[2024-09-01] MEDS: Ibuprofen 600 MG TABLET PO (08:13)
[2024-09-01] MEDS: Acetaminophen 325 MG TABLET 650 MG PO ×3 (08:13→20:46)
[2024-09-01 08:26] VITALS: BP 115/64; PULSE 93; RESP 18; TEMP 36.4; O2SAT 100
[2024-09-01 08:46] LABS: SLIDE REVIEW VERIFIED
[2024-09-01] MEDS: HYDROmorphone HCl 0.5 MG/0.5 ML SYRINGE IVPUSH (08:58)
[2024-09-01] MEDS: iohexoL 350 MG/ML 100 ML INFUS..BTL IV (09:54)
[2024-09-01] MEDS: 0.9 % Sodium Chloride 1,000 ML 999 ML IVCONT (11:09)
[2024-09-01 11:14] VITALS: BP 123/78; PULSE 72; RESP 18; O2SAT 98
[2024-09-01] MEDS: Midazolam HCl 2 MG/2 ML VIAL 1 MG IVPUSH (11:55)
[2024-09-01] MEDS: Ketorolac Tromethamine 15 MG/ML VIAL IVPUSH (11:56)
[2024-09-01 12:22] LABS: CSF Appearance Clear, Colorless; CSF Tube # 3
[2024-09-01 12:28] LABS: Glucose CSF 85 mg/dL; Total Protein CSF 51.2 mg/dL (15-45)
[2024-09-01 13:02] VITALS: BP 103/43; PULSE 88; RESP 16; O2SAT 97
[2024-09-01 13:12] LABS: Appearance CSF HAZY; CSF Tube # 1; Color CSF COLORLESS
[2024-09-01 13:13] LABS: Red Blood Cell CSF 49 MM*3; White Blood Cell CSF 421 MM*3
[2024-09-01 13:14] LABS: CSF Monos 8 %; Lymphocytes CSF 7 %; Neutrophils CSF 85 %
[2024-09-01 13:15] LABS: Appearance CSF HAZY; CSF Tube # 4; Color CSF COLORLESS
[2024-09-01 13:16] LABS: Red Blood Cell CSF 51 MM*3; White Blood Cell CSF 395 MM*3
[2024-09-01 13:17] LABS: CSF Monos 15 %; Lymphocytes CSF 9 %; Neutrophils CSF 76 %
--- NOTE | 2024-09-01 13:59 | P.HPHOSP_ITS ---
History of Present Illness Date of Service: 09/01/24 Chief Complaint: Headache A 34-year-old previously healthy male presents with a chief complaint of severe, bilateral, constant temporal headache starting approximately 24 hours ago. The patient describes the pain as severe and persistent, localized to both temples, with no reported alleviating or aggravating factors. He denies associated symptoms including photophobia, phonophobia, nausea, vomiting, fever, chills, neck stiffness, or visual changes. No recent trauma, travel, sick contacts, or dietary exposures (e.g., unpasteurized dairy) reported. No history of similar episodes. The patient was evaluated with a lumbar puncture (LP) due to the severity of the headache and concern for meningitis, revealing CSF findings suggestive of bacterial meningitis (WBC 395, 76% neutrophils, 9% lymphocytes, glucose 85 , protein 58 ). Serum WBC is 12,000. He was started on IV ceftriaxone for presumed bacterial meningitis. Review of Systems 2 Review of Systems: Gen: no fever Resp: no sob, no cough CV: no chest, no VENEGAS, no leg edema GI: No n/v, no abd pain Neuro: No confusion, +[facility] Medical History Small bowel intussusception Elevated WBC count Acute appendicitis Abdominal pain No pertinent past medical history Social History Household Members: Spouse and Children Housing: House Unable to assess alcohol history related to: Unknown Patient Tobacco Use Status: Never used Tobacco Smoked in Last 30 Days: No Use of substances other than those prescribed or required for medical reasons: Unknown Substance Use Type: Marijuana Currently Displaying Signs/Symptoms of Drug Intoxication Withdrawal: No Have you been hit, kicked, punched, or otherwise hurt by someone within the past year? If so, by whom?: No Do you feel safe in your current relationship?: Yes Is there a partner from a previous relationship who is making you feel unsafe now?: No Are you made to feel afraid or neglected: No Advance Directives: No Advance Directives Information Provided: Yes Do you have a plan to hurt others: No Plan Recently lost weight without trying: No Eating poorly because of decreased appetite: No Nutrition Risks: Acute nausea or vomiting x1 week Poor oral hygiene: No service: No Meds Allergies Allergy/AdvReac Type Severity Reaction Status Date / Time No Known Allergies Allergy Unverified 12/19/22 13:21 Active Medications: Current Medications Acetaminophen (Acetaminophen 325 Mg Tablet) 650 mg PO Q6H PRN PRN Reason: Pain, Mild 1-3,fever,headache Calcium Carbonate (Calcium Carbonate 750 Mg Tab.Chew) 750 mg PO Q4H PRN PRN Reason: Heartburn Lactated Ringer's (Lr) 1,000 mls @ 100 mls/hr IVCONT .Q10H JYOTHI Magnesium Hydroxide (Milk Of Magnesia 30 Ml Oral.Susp) 30 ml PO DAILY PRN PRN Reason: Constipation Melatonin (Melatonin 3 Mg Tablet) 6 mg PO BEDTIME PRN PRN Reason: Insomnia Sodium Chloride (0.9 % Sodium Chloride Flush 3 Ml Syringe) 3 ml IVFLUSH QSHIFT JYOTHI Home Medications ?Medication ?Instructions ?Recorded ?Confirmed ?Last Taken ?Type No Known Home Meds 12/19/22 09/01/24 Un known History Physical Exam 2 Vital Signs and Narrative: Vital Signs: Last Vital Signs Temp 97.6 F 09/01/24 08:26 Pulse 88 09/01/24 13:02 Resp 16 09/01/24 13:02 BP 103/43 L 09/01/24 13:02 Pulse Ox 97 09/01/24 13:02 O2 Del Method Room Air 09/01/24 13:02 Const: Other: General: Alert, oriented x3, no acute distress. HEENT: Normocephalic, atraumatic. PERRL, EOMI, no papilledema. Oropharynx clear. Neck: Supple, no nuchal rigidity. Respiratory: Lungs clear bilaterally Cardiovascular: Regular rate/rhythm, no murmurs. Abdomen: Soft, non-tender, non-distended. Skin: No rashes or petechiae. Neurologic: CN II?XII intact. Strength 5/5, sensation intact. Negative Kernig?s/Brudzinski?s. Results Labs 09/01/24 07:42 09/02/24 05:06 Labs: Laboratory Results - last 24 hr 09/01/24 09/01/24 09/01/24 07:42 11:43 11:43 MCV 84.2 MCH 30.5 MCHC 36.2 H RDW 12.3 Plt Count 190 MPV 9.6 Immature Gran % (Auto) 0.2 Neut % (Auto) 93.0 H Lymph % (Auto) 2.6 L [place] % (Auto) 4.1 Eos % (Auto) 0.0 Baso % (Auto) 0.1 Lymph # (Auto) 0.3 L [place] # (Auto) 0.5 Eos # (Auto) 0.0 Baso # (Auto) 0.0 Abs Immat Gran (auto) 0.02 Absolute Neuts (auto) 11.2 H Absolute Nucleated RBC 0.000 Nucleated RBC % (auto) 0.0 Smear Tech's Comments VERIFIED Anion Gap 15 Estim Creat Clear Calc TNP Estimated GFR > 60 Random Glucose 136 H Calcium 9.9 D Total Bilirubin 1.1 H AST 21 ALT 25 Alkaline Phosphatase 59 Total Protein 8.1 H Albumin 5.1 H CSF Tube Number 3 1 CSF Volume CSF Appearance CSF Color CSF WBC CSF RBC CSF Neutrophils CSF Lymphocytes CSF Monocytes % CSF Appearance (b) CSF Glucose CSF Total Protein 09/01/24 09/01/24 09/01/24 11:43 11:43 11:43 MCV MCH MCHC RDW Plt Count MPV Immature Gran % (Auto) Neut % (Auto) Lymph % (Auto) [place] % (Auto) Eos % (Auto) Baso % (Auto) Lymph # (Auto) [place] # (Auto) Eos # (Auto) Baso # (Auto) Abs Immat Gran (auto) Absolute Neuts (auto) Absolute Nucleated RBC Nucleated RBC % (auto) Smear Tech's Comments Anion Gap Estim Creat Clear Calc Estimated GFR Random Glucose Calcium Total Bilirubin AST ALT Alkaline Phosphatase Total Protein Albumin CSF Tube Number 4 CSF Volume 1.0 1.0 CSF Appearance HAZY HAZY CSF Color COLORLESS CSF WBC CSF RBC CSF Neutrophils CSF Lymphocytes CSF Monocytes % CSF Appearance (b) CSF Glucose CSF Total Protein 09/01/24 09/01/24 09/01/24 11:43 11:43 11:43 MCV MCH MCHC RDW Plt Count MPV Immature Gran % (Auto) Neut % (Auto) Lymph % (Auto) [place] % (Auto) Eos % (Auto) Baso % (Auto) Lymph # (Auto) [place] # (Auto) Eos # (Auto) Baso # (Auto) Abs Immat Gran (auto) Absolute Neuts (auto) Absolute Nucleated RBC Nucleated RBC % (auto) Smear Tech's Comments Anion Gap Estim Creat Clear Calc Estimated GFR Random Glucose Calcium Total Bilirubin AST ALT Alkaline Phosphatase Total Protein Albumin CSF Tube Number CSF Volume CSF Appearance CSF Color COLORLESS CSF WBC 421 H* 395 H* CSF RBC 49 51 CSF Neutrophils 85 CSF Lymphocytes CSF Monocytes % CSF Appearance (b) CSF Glucose CSF Total Protein 09/01/24 09/01/24 09/01/24 11:43 11:43 11:43 MCV MCH MCHC RDW Plt Count MPV Immature Gran % (Auto) Neut % (Auto) Lymph % (Auto) [place] % (Auto) Eos % (Auto) Baso % (Auto) Lymph # (Auto) [place] # (Auto) Eos # (Auto) Baso # (Auto) Abs Immat Gran (auto) Absolute Neuts (auto) Absolute Nucleated RBC Nucleated RBC % (auto) Smear Tech's Comments Anion Gap Estim Creat Clear Calc Estimated GFR Random Glucose Calcium Total Bilirubin AST ALT Alkaline Phosphatase Total Protein Albumin CSF Tube Number CSF Volume CSF Appearance CSF Color CSF WBC CSF RBC CSF Neutrophils 76 CSF Lymphocytes 7 9 CSF Monocytes % 8 15 CSF Appearance (b) Clear, Colorless CSF Glucose 85 CSF Total Protein 51.2 H Imaging Radiologist's Impressions: Impressions Head/Neck CTA 09/01/24 08:40 IMPRESSION: No acute intracranial hemorrhage or acute brain abnormality by CT. No dissection. No high degree stenosis. No main cerebral artery occlusion or embolus. 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 Electronically signed by: Teddy Landaverde MD 09/01/2024 10:11 AM EDT Assessment and Plan (1) Meningitis: Status: Acute Plan 34-year-old male with severe headache and CSF findings suggestive of possible bacterial meningitis despite atypical presentation (no fever, nuchal rigidity, or photophobia), viral not entirely ruled out. concern pathogens include S treptococcus pneumoniae or Neisseria meningitidis Plan: If meningoencephalitis panel suggestive of bacterial meningitis, continue ceftriaxone 2 g IV q12h, add vancomycin , hold ampicillin for now, Acyclovir for possible viral meningitis Dexamethasone Await CSF/blood cultures, meningoencephalitis panel pending Pain control, hydration, neurologic monitoring. Droplet precautions until N. meningitidis ruled out. Infectious Disease for antibiotic guidance; Neurology if symptoms worsen. Reassess in 24?48 hours low risk for dvt, early ambulation Quality Stroke Does the patient have a stroke diagnosis?: No VTE Prior VTE?: No VTE Risk Level:: Medical - low VTE Device Contraindication: N/A - Device Ordered VTE Drug Contraindication: Treatment Not Indicated
[2024-09-01 14:29] LABS: Cryptococcus neoformans/gattii Not Detected (Not Detect.); Escherichia coli K1 Not Detected (Not Detect.); Haemophilus influenzae Not Detected (Not Detect.); Herpes simplex virus 1 Not Detected (Not Detect.); Herpes simplex virus 2 Not Detected (Not Detect.); Human herpesvirus 6 Not Detected (Not Detect.); Human parechovirus Not Detected (Not Detect.); Listeria monocytogenes Not Detected (Not Detect.); Neisseria meningitidis Not Detected (Not Detect.); Streptococcus agalactiae Not Detected (Not Detect.); Streptococcus pneumoniae Not Detected (Not Detect.); Varicella zoster virus Not Detected (Not Detect.)
[2024-09-01 14:39] LABS: Enterovirus Detected (Not Detect.)
[2024-09-01] MEDS: cefTRIAXone sodium 2 GM VIAL IVPUSH (14:49)
[2024-09-01] MEDS: Morphine Sulfate 4 MG/ML CARTRIDGE 2 MG IVPUSH ×3 (15:24→21:43)
--- NOTE | 2024-09-01 15:35 | PHA.MEDREC ---
Addendum entered by Ventura Nelson [facility] 09/01/24 15:54: med rec reviewed Original Note: Pharmacy Consult ? Medication Reconciliation Pharmacy has completed the medication reconciliation. Spoke with pt and he confirmed he is not taking any medications at this time.
[2024-09-01 16:04] VITALS: BMI 22.3
[2024-09-01 16:19] VITALS: BP 121/71; PULSE 75; RESP 18; TEMP 36.6; O2SAT 100
[2024-09-01] MEDS: Lactated Ringers 1,000 ML 100 ML IVCONT (16:27)
[2024-09-01] MEDS: vancomycin HCL 1,000 MG, vancomycin HCL 750 MG in 0.9 % Sodium Chloride 500 ML 267.5 MG IV (16:44)
--- NOTE | 2024-09-01 17:38 | PC.NURSE ---
Pt is a moderate fall risk d/t his report of dizziness with movement. Pt is politely refusing the bed alarm. Pt educated to use call ramirez for help. Reinforced not to ambulate w/o assistance. All safety measures taken. Pt continues to report 7/10 severe headache, VS stable, MD [place] notified. No new orders at this time. Last dose of morphine and tylenol given at 15:24 in ED. No other pain prn meds available at this time. Ice pack provided to forehead and back of neck. Curtains drawn. Lights dim.
--- NOTE | 2024-09-01 18:03 | PHA.PROG ---
Admission Date/Time: September 01, 2024 13:40 Indication: PHYSICIAN/ALLERGY/IMMUNOLOGY INFECTION Weight in k.6 kg Adjusted body weight in Kg: [place] body weight in Kg: Obesity Dosing Indication % IBW: Serum Creatinine - Last 168 Hours 09/01/24 07:42 Creatinine 0.81 Estimated CrCl and GFR - Last 168 Hours 09/01/24 07:42 Estim Creat Clear Calc TNP Estimated GFR > 60 Vancomycin Loading Dose: 1750 MG Current Vancomycin Dosing Regimen: 1500 MG Q12H Vancomycin Monitoring using AUC goal of 400 - 600 range with trough as surrogate marker: NYM=706 TROUGH=17.9 Date and Time for next Vancomycin Level to be drawn: 09/02/24 @1500 Pharmacist Comments on Vancomycin Plan: start treatment aggressively due to indication of taxation consultant infection. Will monitor pt closely and adjust dose accordingly. Vancomycin dosing will take advantage of [employer] as a clinical decision support tool that uses Bayesian modeling to calculate individual patient's pharmacokinetic parameters and forecast the patient's drug concentration time course with the target goal AUC 24 range of 400 - 600 mg/L/hr.
[2024-09-01 19:22] VITALS: BP 115/63; PULSE 68; RESP 18; TEMP 37.1; O2SAT 98
[2024-09-01] MEDS: oxyCODONE HCl Immed Release 5 MG TABLET PO (20:45)
[2024-09-01] MEDS: ondansetron HCL 4 MG/2 ML VIAL IVPUSH (22:03)
--- NOTE | 2024-09-01 22:04 | MHC.PIE ---
p; 2044; pt c/o pain 8/10 h/a. note; prn morphine q4h given at 1830. pt willing to try tylenol and oxy for pain. 2129; pt reports increased pain 9/10 h/a. pt now c/o n/v. note; no prn for nausea? i; dr hernandez notified. ok to give early dose. new order zofran prn e; will cont to monitor
[2024-09-01] MEDS: Ketorolac Tromethamine 30 MG/ML VIAL IVPUSH (23:37)
[2024-09-02] MEDS: Lactated Ringers 1,000 ML 100 ML IVCONT ×2 (00:22→12:31)
[2024-09-02] MEDS: 0.9 % Sodium Chloride 1,000 ML 999 ML IV (01:27)
[2024-09-02] MEDS: dexAMETHasone sod phosphate 4 MG/ML VIAL 6 MG IVPUSH (01:27)
[2024-09-02] MEDS: Metoclopramide HCl 10 MG/2 ML VIAL 5 MG IVPUSH (01:28)
[2024-09-02] MEDS: diphenhydrAMINE HCL 50 MG/ML VIAL IVPUSH (01:28)
[2024-09-02 02:05] VITALS: BP 101/56; PULSE 55; RESP 16; TEMP 37.1; O2SAT 98
[2024-09-02] MEDS: Morphine Sulfate 4 MG/ML CARTRIDGE 2 MG IVPUSH (05:09)
[2024-09-02] MEDS: vancomycin HCL 1,500 MG in 0.9 % Sodium Chloride 500 ML 333.33 MG IV (05:09)
[2024-09-02 06:16] LABS: Alanine Aminotransferase 19 U/L (0-40); Albumin Level 4.2 g/dL (3.5-5.0); Alkaline Phosphatase 48 U/L (39-117); Anion Gap 11 (12-20); Aspartate Amino Transferase 20 U/L (5-37); Bilirubin Total 0.6 mg/dL (0.0-1.0); Blood Urea Nitrogen 8 mg/dL (9-16); Calcium 9.1 mg/dL (8.4-10.2); Carbon Dioxide 24 mmol/L (22-29); Chloride 106 mmol/L (96-108); Creatinine Clr Calc Pharmacy 155.7; Estimated Glomerular Filt Rate > 60; Glucose Random 114 mg/dL (60-115); Potassium 4.2 mmol/L (3.3-5.1); Sodium 137 mmol/L (135-145); Total Protein 6.8 g/dL (6.5-8.0)
[2024-09-02] MEDS: Acetaminophen 325 MG TABLET 975 MG PO (06:31)
[2024-09-02 07:36] VITALS: BP 118/64; PULSE 65; RESP 16; TEMP 36.4; O2SAT 99
[2024-09-02] MEDS: oxyCODONE HCl Immed Release 5 MG TABLET PO (08:09)
--- NOTE | 2024-09-02 09:26 | P.PNIM_ITS ---
Subjective Subjective Date of Service: 09/02/24 Interval History: Persistent BARGER, no fever Physical Exam 2 Vital Signs: Vital Signs: Last Vital Signs Temp 97.6 F 09/02/24 07:36 Pulse 65 09/02/24 07:36 Resp 16 09/02/24 07:36 BP 118/64 09/02/24 07:36 Pulse Ox 99 09/02/24 07:36 O2 Del Method Room Air 09/02/24 07:36 BMI result Body Mass Index 22.3 Const: Other: General: Alert, oriented x3, no acute distress. HEENT: Normocephalic, atraumatic. PERRL, EOMI, no papilledema. Oropharynx clear. Neck: Supple, no nuchal rigidity. Respiratory: Lungs clear bilaterally Cardiovascular: Regular rate/rhythm, no murmurs. Abdomen: Soft, non-tender, non-distended. Skin: No rashes or petechiae. Neurologic: CN II?XII intact. Strength 5/5, sensation intact. Negative Kernig?s/Brudzinski?s. Objective Data Active Medications Acetaminophen (Acetaminophen 325 Mg Tablet) 975 mg PO Q6H PRN PRN Reason: Pain, Mild 1-3,fever,headache Last Admin: 09/02/24 06:31 Dose: 975 mg Documented By: MICKI Calcium Carbonate (Calcium Carbonate 750 Mg Tab.Chew) 750 mg PO Q4H PRN PRN Reason: Heartburn Lactated Ringer's (Lr) 1,000 mls @ 100 mls/hr IVCONT .Q10H JYOTHI Last Infusion: 09/02/24 06:49 Dose: 100 mls/hr Documented By: MICKI Magnesium Hydroxide (Milk Of Magnesia 30 Ml Oral.Susp) 30 ml PO DAILY PRN PRN Reason: Constipation Melatonin (Melatonin 3 Mg Tablet) 6 mg PO BEDTIME PRN PRN Reason: Insomnia Morphine Sulfate (Morphine Sulfate 4 Mg/Ml Cartridge) 2 mg IVPUSH Q4H PRN; Protocol PRN Reason: Pain, Severe (Pain Scale 7-10) Last Admin: 09/02/24 05:09 Dose: 2 mg Documented By: MICKI Ondansetron HCl (Ondansetron Hcl 4 Mg/2 Ml Vial) 4 mg IVPUSH Q6H PRN PRN Reason: Nausea and Vomiting Last Admin: 09/01/24 22:03 Dose: 4 mg Documented By: MICKI Oxycodone HCl (Oxycodone Hcl Immed Release 5 Mg Tablet) 5 mg PO Q6H PRN PRN Reason: Pain, Moderate(Pain Scale 4-6) Last Admin: 09/02/24 08:09 Dose: 5 mg Documented By: GENA Sodium Chloride (0.9 % Sodium Chloride Flush 3 Ml Syringe) 3 ml IVFLUSH QSHIFT [facility] Last Admin: 09/01/24 23:00 Dose: Not Given Documented By: MICKI Non-Admin Reason: IV Running Labs 09/01/24 07:42 09/02/24 05:06 Labs: Laboratory Results - last 24 hr 09/01/24 09/01/24 09/01/24 11:43 11:43 11:43 Hold Purple Top Anion Gap Estim Creat Clear Calc Estimated GFR Random Glucose Calcium Total Bilirubin AST ALT Alkaline Phosphatase Total Protein Albumin CSF Tube Number 3 1 4 CSF Volume 1.0 CSF Appearance CSF Color CSF WBC CSF RBC CSF Neutrophils CSF Lymphocytes CSF Monocytes % CSF Appearance (b) CSF Glucose CSF Total Protein CSF C.neoform/gat PCR CSF CMV DNA (PCR) CSF Enterovirus (PCR) CSF E. coli K1 (PCR) CSF H. influenzae (PCR) CSF HSV I (PCR) CSF HSV II (PCR) CSF HHV 6 (PCR) CSF L.monocytogenes PCR CSF N. meningitidis PCR CSF Parechovirus (PCR) CSF S. agalactiae (PCR) CSF S. pneumoniae (PCR) CSF VZV (PCR) 09/01/24 09/01/24 09/01/24 11:43 11:43 11:43 Hold Purple Top Anion Gap Estim Creat Clear Calc Estimated GFR Random Glucose Calcium Total Bilirubin AST ALT Alkaline Phosphatase Total Protein Albumin CSF Tube Number CSF Volume 1.0 CSF Appearance HAZY HAZY CSF Color COLORLESS COLORLESS CSF WBC 421 H* CSF RBC CSF Neutrophils CSF Lymphocytes CSF Monocytes % CSF Appearance (b) CSF Glucose CSF Total Protein CSF C.neoform/gat PCR CSF CMV DNA (PCR) CSF Enterovirus (PCR) CSF E. coli K1 (PCR) CSF H. influenzae (PCR) CSF HSV I (PCR) CSF HSV II (PCR) CSF HHV 6 (PCR) CSF L.monocytogenes PCR CSF N. meningitidis PCR CSF Parechovirus (PCR) CSF S. agalactiae (PCR) CSF S. pneumoniae (PCR) CSF VZV (PCR) 09/01/24 09/01/24 09/01/24 11:43 11:43 11:43 Hold Purple Top Anion Gap Estim Creat Clear Calc Estimated GFR Random Glucose Calcium Total Bilirubin AST ALT Alkaline Phosphatase Total Protein Albumin CSF Tube Number CSF Volume CSF Appearance CSF Color CSF WBC 395 H* CSF RBC 49 51 CSF Neutrophils 85 76 CSF Lymphocytes 7 CSF Monocytes % CSF Appearance (b) CSF Glucose CSF Total Protein CSF C.neoform/gat PCR CSF CMV DNA (PCR) CSF Enterovirus (PCR) CSF E. coli K1 (PCR) CSF H. influenzae (PCR) CSF HSV I (PCR) CSF HSV II (PCR) CSF HHV 6 (PCR) CSF L.monocytogenes PCR CSF N. meningitidis PCR CSF Parechovirus (PCR) CSF S. agalactiae (PCR) CSF S. pneumoniae (PCR) CSF VZV (PCR) 09/01/24 09/01/24 09/02/24 11:43 11:43 05:06 Hold Purple Top SEE NOTE Anion Gap 11 L Estim Creat Clear Calc 155.7 Estimated GFR > 60 Random Glucose 114 Calcium 9.1 D Total Bilirubin 0.6 AST 20 ALT 19 Alkaline Phosphatase 48 Total Protein 6.8 Albumin 4.2 CSF Tube Number CSF Volume CSF Appearance CSF Color CSF WBC CSF RBC CSF Neutrophils CSF Lymphocytes 9 CSF Monocytes % 8 15 CSF Appearance (b) Clear, Colorless CSF Glucose 85 CSF Total Protein 51.2 H CSF C.neoform/gat PCR Not Detected CSF CMV DNA (PCR) Not Detected CSF Enterovirus (PCR) Detected A* CSF E. coli K1 (PCR) Not Detected CSF H. influenzae (PCR) Not Detected CSF HSV I (PCR) Not Detected CSF HSV II (PCR) Not Detected CSF HHV 6 (PCR) Not Detected CSF L.monocytogenes PCR Not Detected CSF N. meningitidis PCR Not Detected CSF Parechovirus (PCR) Not Detected CSF S. agalactiae (PCR) Not Detected CSF S. pneumoniae (PCR) Not Detected CSF VZV (PCR) Not Detected Microbiology Microbiology Results: Microbiology 09/01/24 11:43 Gram Stain - Final Cerebrospinal Fluid Fluid Description - Final CSF Culture - Preliminary No growth to date. Assessment and Plan (1) Meningitis: Status: Acute Plan 34/m with BARGER d/t enterovirus meningitis plan: Pain control with toraodol, morphine, tylenol no indication for Abx possible dc home later today Quality Stroke Does the patient have a stroke diagnosis?: No VTE Prior VTE?: No VTE Risk Level:: Medical - low VTE Device Contraindication: N/A - Device Ordered VTE Drug Contraindication: Treatment Not Indicated
[2024-09-02] MEDS: 0.9 % Sodium Chloride Flush 3 ML SYRINGE IVFLUSH (09:27)
[2024-09-02] MEDS: Ketorolac Tromethamine 30 MG/ML VIAL IVPUSH (09:27)
--- NOTE | 2024-09-02 09:58 | P.DS_ITS ---
DS: Providers Provider Date of Service: 09/02/24 Date of admission: 09/01/24 13:40 Date of discharge: 09/02/24 Primary care physician: Milan Leal MD Consults: 09/01/24 14:20 Consult to Infectious Diseases Routine Consulting Provider: [facility] [place] Reason for consultation: meningitis Has provider been notified: No DS: Diagnosis Discharge Diagnosis (1) Meningitis: Status: Acute DS: Summary Hospital Course Hospital Course: Chief Complaint: Headache A 34-year-old previously healthy male presents with a chief complaint of severe, bilateral, constant temporal headache starting approximately 24 hours ago. The patient describes the pain as severe and persistent, localized to both temples, with no reported alleviating or aggravating factors. He denies associated symptoms including photophobia, phonophobia, nausea, vomiting, fever, chills, neck stiffness, or visual changes. No recent trauma, travel, sick contacts, or dietary exposures (e.g., unpasteurized dairy) reported. No history of similar episodes. The patient was evaluated with a lumbar puncture (LP) due to the severity of the headache and concern for meningitis, revealing CSF findings sug gestive of bacterial meningitis (WBC 395, 76% neutrophils, 9% lymphocytes, glucose 85 , protein 58 ). Serum WBC is 12,000. He was started on IV ceftriaxone for presumed bacterial meningitis. hospital course: Patient was admitted and treated initially with IV Abx, pain medication and once it became apparent that he has enterovirus as cause for meningitis, antibiotics were discontinued and treated symptomatic for pain. He presently doesn't have fever, no meningeal sings other than headache. He will continue symptoamatic treatment with pain medication and outpatient follow up with his PCP Time Attestation Discharge Coordination Time (in mins): 35 Quality: Safe Use of Opioids Does Pt have an Active Cancer Diagnosis on the Problem List?: No Quality: Stroke Does the patient have a stroke diagnosis?: No Physical Exam Vital Signs: Vital Signs: Last Vital Signs Temp 97.6 F 09/02/24 07:36 Pulse 65 09/02/24 07:36 Resp 16 09/02/24 07:36 BP 118/64 09/02/24 07:36 Pulse Ox 99 09/02/24 07:36 O2 Del Method Room Air 09/02/24 07:36 BMI result Body Mass Index 22.3 Const: Other: General: Alert, oriented x3, no acute distress. HEENT: Normocephalic, atraumatic. PERRL, EOMI, no papilledema. Oropharynx clear. Neck: Supple, no nuchal rigidity. Respiratory: Lungs clear bilaterally Cardiovascular: Regular rate/rhythm, no murmurs. Abdomen: Soft, non-tender, non-distended. Skin: No rashes or petechiae. Neurologic: CN II?XII intact. Strength 5/5, sensation intact. Negative Kernig?s/Brudzinski?s. DS: Data Data Completed and Pending Labs on day of discharge: Laboratory Results - last 24 hr 09/01/24 09/01/24 09/01/24 11:43 11:43 11:43 Hold Purple Top Sodium Potassium Chloride Carbon Dioxide Anion Gap BUN Creatinine Estim Creat Clear Calc Estimated GFR Random Glucose Calcium Total Bilirubin AST ALT Alkaline Phosphatase Total Protein Albumin CSF Tube Number 3 1 4 CSF Volume 1.0 CSF Appearance CSF Color CSF WBC CSF RBC CSF Neutrophils CSF Lymphocytes CSF Monocytes % CSF Appearance (b) CSF Glucose CSF Total Protein CSF C.neoform/gat PCR CSF CMV DNA (PCR) CSF Enterovirus (PCR) CSF E. coli K1 (PCR) CSF H. influenzae (PCR) CSF HSV I (PCR) CSF HSV II (PCR) CSF HHV 6 (PCR) CSF L.monocytogenes PCR CSF N. meningitidis PCR CSF Parechovirus (PCR) CSF S. agalactiae (PCR) CSF S. pneumoniae (PCR) CSF VZV (PCR) 09/01/24 09/01/24 09/01/24 11:43 11:43 11:43 Hold Purple Top Sodium Potassium Chloride Carbon Dioxide Anion Gap BUN Creatinine Estim Creat Clear Calc Estimated GFR Random Glucose Calcium Total Bilirubin AST ALT Alkaline Phosphatase Total Protein Albumin CSF Tube Number CSF Volume 1.0 CSF Appearance HAZY HAZY CSF Color COLORLESS COLORLESS CSF WBC 421 H* CSF RBC CSF Neutrophils CSF Lymphocytes CSF Monocytes % CSF Appearance (b) CSF Glucose CSF Total Protein CSF C.neoform/gat PCR CSF CMV DNA (PCR) CSF Enterovirus (PCR) CSF E. coli K1 (PCR) CSF H. influenzae (PCR) CSF HSV I (PCR) CSF HSV II (PCR) CSF HHV 6 (PCR) CSF L.monocytogenes PCR CSF N. meningitidis PCR CSF Parechovirus (PCR) CSF S. agalactiae (PCR) CSF S. pneumoniae (PCR) CSF VZV (PCR) 09/01/24 09/01/24 09/01/24 11:43 11:43 11:43 Hold Purple Top Sodium Potassium Chloride Carbon Dioxide Anion Gap BUN Creatinine Estim Creat Clear Calc Estimated GFR Random Glucose Calcium Total Bilirubin AST ALT Alkaline Phosphatase Total Protein Albumin CSF Tube Number CSF Volume CSF Appearance CSF Color CSF WBC 395 H* CSF RBC 49 51 CSF Neutrophils 85 76 CSF Lymphocytes 7 CSF Monocytes % CSF Appearance (b) CSF Glucose CSF Total Protein CSF C.neoform/gat PCR CSF CMV DNA (PCR) CSF Enterovirus (PCR) CSF E. coli K1 (PCR) CSF H. influenzae (PCR) CSF HSV I (PCR) CSF HSV II (PCR) CSF HHV 6 (PCR) CSF L.monocytogenes PCR CSF N. meningitidis PCR CSF Parechovirus (PCR) CSF S. agalactiae (PCR) CSF S. pneumoniae (PCR) CSF VZV (PCR) 09/01/24 09/01/24 09/02/24 11:43 11:43 05:06 Hold Purple Top SEE NOTE Sodium 137 Potassium 4.2 Chloride 106 Carbon Dioxide 24 Anion Gap 11 L BUN 8 L Creatinine 0.68 Estim Creat Clear Calc 155.7 Estimated GFR > 60 Random Glucose 114 Calcium 9.1 D Total Bilirubin 0.6 AST 20 ALT 19 Alkaline Phosphatase 48 Total Protein 6.8 Albumin 4.2 CSF Tube Number CSF Volume CSF Appearance CSF Color CSF WBC CSF RBC CSF Neutrophils CSF Lymphocytes 9 CSF Monocytes % 8 15 CSF Appearance (b) Clear, Colorless CSF Glucose 85 CSF Total Protein 51.2 H CSF C.neoform/gat PCR Not Detected CSF CMV DNA (PCR) Not Detected CSF Enterovirus (PCR) Detected A* CSF E. coli K1 (PCR) Not Detected CSF H. influenzae (PCR) Not Detected CSF HSV I (PCR) Not Detected CSF HSV II (PCR) Not Detected CSF HHV 6 (PCR) Not Detected CSF L.monocytogenes PCR Not Detected CSF N. meningitidis PCR Not Detected CSF Parechovirus (PCR) Not Detected CSF S. agalactiae (PCR) Not Detected CSF S. pneumoniae (PCR) Not Detected CSF VZV (PCR) Not Detected Preliminary micro results at discharge 09/01/24 11:43 CSF Culture - Preliminary Cerebrospinal Fluid No growth to date. Discharge Plan Discharge Patient Disposition: Home, Self-Care Referrals: Milan Leal MD [Primary Care Provider, Medical] - 1 Week Discharge Medications: No Action No Known Home Meds Diet: Advance to usual diet Activity on Discharge: As tolerated Stand Alone Forms: Patient Portal Discharge page Print Language: [place] Care Plan Goals: recovery from vital meningitis Health Concerns: viral meningitis Plan of Treatment: take pain medication as directed and follow up with your doctor in a week Assessment: see above
--- NOTE | 2024-09-02 11:09 | MHC.CM.PN ---
PT REPORTS HE LIVES WITH HIS AND KIDS AND IS INDEPENDENT WITH CARE HE HAS NO DME AND NO SERVICES, HE WORKS AND DRIVES NEW HCP COMPLETED NAMING HIS HIS AGENT PCP: KAITLIN MORAN DCP: HOME VIA SELF TRANSPORT
[2024-09-02 15:27] VITALS: BP 124/69; PULSE 70; RESP 16; TEMP 37; O2SAT 99
== END 2024-09-02 16:05 | disposition home or self-care (01) | DRG 76 ==
LOC: HO.ED 13:54 → HO.EDOVER 13:58 → HO.S3 14:41
PROVIDERS: Admitting Provider Internal Medicine; Emergency Provider Emergency Medicine; PCP Internal Medicine; Visit Provider Internal Medicine
DX: A87.0 Enteroviral meningitis (principal)
CPT/HCPCS: 36415; 70496; 70498; 80053; 82945; 84157; 85025; 87015; 87040; 87070; 87205; 87483; 89051; 99221; 99285; J0696; J1100; J1171; J1200; J1885; J2250; J2270; J2405; J2765; J3370; J3371; J7120; Q9967

== ENCOUNTER → 2024-09-01 07:28 | Outpatient (BNV) | payer OTHER, SELFPAY | PROVIDERS: Emergency Provider Emergency Medicine; PCP Internal Medicine; Visit Provider Radiology Diagnostic Radiology | DX: R51.9 Headache, unspecified (principal) | CPT/HCPCS: 70496; 70498 ==

== ENCOUNTER → 2024-09-01 13:40 | Outpatient (BNV) | payer OTHER, SELFPAY | PROVIDERS: Admitting Provider Internal Medicine; Emergency Provider Emergency Medicine; PCP Internal Medicine; Visit Provider Internal Medicine | DX: G03.9 Meningitis, unspecified (principal) | CPT/HCPCS: 99223; 99499 ==